=== PATIENT | male | born 1945 | race Two or more races ===

== ENCOUNTER 2018-01-04 07:11 | Inpatient (IN) | payer OTHER ==
[2018-01-04] MEDS ORDERED: SODIUM CHLORIDE 1,000 ML IV STA ×3 (07:22→10:23)
[2018-01-04] MEDS ORDERED: ACETAMINOPHEN 1000 MG/100 ML VIAL (NON FORMULARY) IVPB ONE (07:41)
--- NOTE | 2018-01-04 07:41 | PDOC ---
History of Present Illness - General Chief Complaint: Bleeding from Anus Stated Complaint: ABD PAIN,BLOOD IN THE STOOL Time Seen by Provider: 01/04/18 07:22 - History of Present Illness Initial Comments: 01/04/18 07:49 72yo M resident from [facility] with h/o severe dementia with psychosis (capable of being verbal, but rarely speaks; listens to commands), hypertension, hyperlipidemia, depression, constipation and anxiety who presents to the emergency department via EMS for abdominal pain and blood in stool at the detention. Pt's HPI is severely limited due to his dementia and history is taken from detention paperwork and EMS team. Pt's BP en route to ED was 60/40 's and repeat here was 85/55 per automated cuff. Past History - Past Medical History Allergies/Adverse Reactions: Allergies Allergy/AdvReac Type Severity Reaction Status Date / Time No Known Allergies Allergy Verified 04/13/15 10:11 Home Medications: Ambulatory Orders Amlodipine Besylate [Norvasc -] 10 mg PO DAILY 04/13/15 Citalopram Hydrobromide [Celexa -] 20 mg PO DAILY 04/13/15 Gabapentin 300 mg PO TID 04/13/15 Oxycodone HCl 5 mg PO PRN PRN 04/13/15 Polyethylene Glycol 3350 [Miralax 119 gm Btl -] 17 gm PO DAILY 04/13/15 Quetiapine Fumarate [Seroquel -] 100 mg PO HS 04/13/15 Simvastatin [Zocor -] 20 mg PO HS 04/13/15 Tamsulosin HCl [Flomax -] 0.4 mg PO DAILY 04/13/15 oxyCODONE HCL [Roxicodone -] 5 mg PO Q8H PRN #0 tablet 04/15/15 Anemia: No Asthma: No Cancer: No Cardiac Disorders: No COPD: No CHF: No Dementia: Yes (dementia w/psychosis) Diabetes: No GI Disorders: No HTN: Yes Hypercholesterolemia: Yes Psychiatric Problems: Yes (depression,anxiety) Seizures: No - Suicide/Smoking/Psychosocial Hx Smoking History: Unknown if ever smoked Have you smoked in the past 12 months: No Hx Alcohol Use: No Substance Use Type: None Hx Substance Use Treatment: No Review of Systems - Review of Systems Able to Perform ROS?: No (Severe dementia) *Physical Exam - Physical Exam Comments: 01/04/18 08:09 GEN: NAD, laying in bed, alert to verbal stimuli, oriented to self HEENT: Conjunctival pallor, EOMI, DENI, Dry mucosa with thickened mucous, posterior oropharynx without erythema NECK: No JVD, Soft, no lymphadenopathy LUNG: CTA b/l no wheezes, rales, rhonchi CARDIAC: Tachycardic with regular rhythm, no murmurs appreciated, S1 and S2 normal Abdomen: Soft, nondistended, normoactive BS, diffuse tenderness, no guarding, unable to assess rebound RECTAL: Dark melanotic soft stool noted, no masses appreciated, slightly enlarged prostate noted, no hemorrhoids appreciated EXT: Warm, 2+ DP pulses, cap refill <2sec Heart Score/ECG Review #1 01/04/18 08:03 Sinus tachycardia at 109bpm with normal axis, normal R-wave progression, no ST abnormalities. Qtc 471 ED Treatment Course - LABORATORY CBC & Chemistry Diagram: 01/04/18 09:25 01/04/18 08:30 Medical Decision Making - Medical Decision Making 01/04/18 08:05 72yo M resident from [facility] with h/o severe dementia with psychosis (capable of being verbal, but rarely speaks; listens to commands), hypertension, hyperlipidemia, depression, constipation and anxiety Highly suspicious for GI bleed; r/o diverticular bleed vs. small bowel bleed vs. upper bleed Also suspicious for septic process --CBC --CMP --LA --UA --Blood cx, urine cx --VBG --1LNS bolus for his hypotension (will likely need another after, but would like to reassess his lung evaluation) --Ofirmev for fever --Protonix 40mg IVP once for GI protection --Type and screen, PT/INR, aPTT --EKG --CXR --Vanc 1500 once/Zosyn 4.5 once 01/04/18 08:11 Spoke with daughter who is HCP --DNR/DNI still in effect --Tranfusions are okay --Reversible causes okay to treat 01/04/18 08:59 Repeat BP after 1LNS 85/61 (MAP 71) with lung exam still clear --1LNS bolus 01/04/18 09:13 CMP revealing hypernatremia at 154, Chloride 120, BUN 78, Cr 1.5 --Most likely all secondary to dehydration and prerenal azotemia --Will continue NS for pressure support for now --FWD currently 4.1L at this Na level CBC hemolyzed; re-draw 01/04/18 09:22 LA 5.1 reported by lab; continue hydration. continue sepsis work-up 01/04/18 10:27 CBC 5.8 Hgb --Transfuse 2U PRBC now --Call for Dr. Sellers placed for admitting --Call to be placed to ICU for possible admit 01/04/18 12:40 Admitted to hospital for GI bleed; icu *DC/Admit/Observation/Transfer Diagnosis at time of Disposition: GI bleed Qualifiers: GI bleed type/associated pathology: unspecified gastrointestinal hemorrhage type Qualified Code(s): K92.2 - Gastrointestinal hemorrhage, unspecified - Discharge Dispostion Condition at time of disposition: Stable Admit: Yes - Referrals Referrals: Abhinav Giraldo [Non Staff, Medical] - - Patient Instructions - Post Discharge Activity
--- NOTE | 2018-01-04 07:51 | PDOC ---
Attending Attestation - Resident Resident Name: Arya Pressley - ED Attending Attestation I have performed the following: I have examined & evaluated the patient, The case was reviewed & discussed with the resident, I agree w/resident's findings & plan, Exceptions are as noted - HPI HPI: 72 yo M history HTN, dementia sent by [facility] for GI bleed. He has dementia, unable to offer history. Daughter is his proxy, she is present at bedside. He has a DNR/DNI, but she specifies that any reversible medical condition can be treated (transfusion, abx, IV fluids, etc). - Physicial Exam PE: GENERAL: Awake, alert, in no acute distress HEAD: No signs of trauma EYES: PERRLA, EOMI, sclera anicteric, conjunctiva clear ENT: Auricles normal inspection, hearing grossly normal, nares patent, oropharynx clear without exudates. Dry mucosa NECK: Normal ROM, supple, no lymphadenopathy, JVD, or masses LUNGS: Breath sounds equal, clear to auscultation bilaterally. No wheezes, and no crackles HEART: Tachycardic, normal S1 and S2, no murmurs, rubs or gallops ABDOMEN: Soft, diffusely tender, normoactive bowel sounds. +Guarding, no rebound. No masses. +Melena in diaper. EXTREMITIES: Normal range of motion, no edema. No clubbing or cyanosis. No cords, erythema, or tenderness NEUROLOGICAL: Moving all extremities. Speech is garbled. Limited by dementia. SKIN: Warm, Dry, normal turgor, no rashes or lesions noted. - Medical Decision Making Pt with melena, but also with signs of sepsis. Sepsis protocol initiated. Will tread with protonix, IV fluids, and early abx. Heart Score/ECG Review - ECG Impressions Comment:: EKG rad 07:40- Sinus tach 109 bpm, no acute ST/T changes
[2018-01-04] MEDS ORDERED: ACETAMINOPHEN INJECTION 100 ML IVPB ONE (07:53)
[2018-01-04] MEDS ORDERED: PANTOPRAZOLE SODIUM 40 MG VIAL IVPUSH ONE (07:58)
[2018-01-04] MEDS ORDERED: PANTOPRAZOLE SODIUM 40 MG/100 ML BAG IVPB ONE (08:14)
[2018-01-04] MEDS ORDERED: PIPERACILLIN/TAZOB 4.5 GM 4.5 GM/100 ML BAG IVPB ONE ×2 (08:17→08:34)
[2018-01-04] MEDS ORDERED: VANCOMYCIN 1,500 MG in DEXTROSE 5%-WATER - 500 ML IVPB ONE (08:17)
[2018-01-04] MEDS ORDERED: PANTOPRAZOLE SODIUM 40 MG VIAL ONE ×2 (08:18→14:36)
[2018-01-04] MEDS ORDERED: VANCOMYCIN 1 GRAM (PRE-DOCKED) 1,000 MG/250 ML BAG IVPB ONE (08:34)
[2018-01-04 08:36] LABS: VENOUS PC02 44.3 mmHg (38-52); VENOUS PH 7.32 (7.32-7.42); VENOUS PO2 49.8 mmHg (28-48)
[2018-01-04 09:02] LABS: ALBUMIN 2.5 g/dl (3.4-5.0); ALK PHOS 51 U/L (45-117); ANION GAP 10 (8-16); BILIRUBIN,TOTAL 0.2 mg/dL (0.2-1.0); BLOOD UREA NITROGEN 78 mg/dL (7-18); CHLORIDE 120 mmol/L (98-107); CO2 24 mmol/L (21-32); CREATININE 1.5 mg/dL (0.7-1.3); GLUCOSE,RANDOM 157 mg/dL (74-106); POTASSIUM 4.5 mmol/L (3.5-5.1); SGOT/AST 12 U/L (15-37); SGPT/ALT 13 U/L (12-78); SODIUM 154 mmol/L (136-145)
[2018-01-04 09:18] LABS: URINE APPEARANCE SLCLOUDY; URINE BILIRUBIN NEGATIVE (<2.0 mg/dL); URINE COLOR YELLOW; URINE GLUCOSE (UA) NEGATIVE (NEGATIVE); URINE KETONE NEGATIVE (NEGATIVE); URINE LEUK ESTERASE TRACE (NEGATIVE); URINE NITRITE NEGATIVE (NEGATIVE); URINE PROTEIN NEGATIVE (NEGATIVE); URINE UROBILINOGEN NEGATIVE mg/dL (0.2-1.0)
[2018-01-04 09:24] LABS: EPI CELLS RARE /HPF (FEW); URINE HYALINE CAST 7 /lpf; URINE MUCUS FEW
[2018-01-04 09:46] LABS: BASO % 0.5 % (0-2.0); HEMATOCRIT 17.6 % (35.4-49); LYMPH % 5.6 % (8-40); MCH 30.8 pg (25.7-33.7); MCHC 32.7 g/dl (32.0-35.9); MEAN CELL VOLUME 94.2 fl (80-96); MEAN PLT VOLUME 9.1 fl (7.5-11.1); MONO % 1.9 % (3.8-10.2); PLATELET COUNT 118 K/MM3 (134-434); RBC 1.87 M/mm3 (4.00-5.60); RDW 14.4 % (11.9-15.9); WHITE BLOOD COUNT 11.5 K/mm3 (4.0-10.0)
[2018-01-04 10:10] LABS: HEMOGLOBIN 5.8 GM/dL (11.7-16.9)
[2018-01-04 10:54] LABS: INR 1.47 (0.82-1.09); PROTHROMBIN TIME (PATIENT) 16.6 SEC (9.98-11.88)
[2018-01-04 10:57] LABS: ACTIVATED PTT 23.1 SECONDS (26.9-34.4)
--- NOTE | 2018-01-04 14:03 | CONSULT ---
Consultation: Service: [facility] CC: Dark red stool per rectum PCP: Dr. Powers GI: Dr. Andersen HPI: 72 yo M NH resident from [facility] w/ h/o advanced dementia, HTN, HLD, BPH, L sided weakness and wheelchair bound s/p multiple CVA, intracranial aneurysm bleed x 2 BIBEMS for dark red stool per rectum. Per and daughter at bedside, the NH called them at 6am in the morning and informed them patient was having possible bleeding while having bowel movement with abd pain. While at long term, per nurse patient did not have fever, chills, n/v, chest pain, cough, shortness of breath. PMH: As above PSH: None Social History: Non-contributory Family History: Non-contributory Allergy: None Home Meds: Amlodipine Besylate [Norvasc -] 5 mg PO DAILY 01/04/18 Doxazosin Mesylate [Cardura -] 1 mg PO HS 01/04/18 Gabapentin [Neurontin] 100 mg PO HS 01/04/18 Polyethylene Glycol 3350 [Gavilax] 17 gm PO DAILY 01/04/18 Quetiapine Fumarate [Seroquel] 100 mg PO HS 01/04/18 ROS: Unable to obtain due to advanced dementia Physical Examination Last Vital Signs Temp Pulse Resp BP Pulse Ox 99.5 F 90 18 113/61 98 01/04/18 13:40 01/04/18 13:40 01/04/18 13:40 01/04/18 13:40 01/04/18 13:40 GENERAL: AAO x 2, confused and demented at baseline, in no acute distress HEAD: No signs of trauma EYES: PERRLA, EOMI, sclera anicteric, conjunctiva pale ENT:nares patent, oropharynx clear pale without exudates. Dry mucosa NECK: Normal ROM, supple, no lymphadenopathy, JVD, or masses Lymph Nodes: No cervical or inguinal LAD. Cardiovascular: Tachycardic, Regular rhythm, S1 and S2 normal, no m/g/r. Lungs: CTAB Abdomen: Normoactive bowel sounds. diffuse tenderness upon deep palpation, no guarding/rebound Extremeties: cold extremities, diminished peripheral pulses : rectal exam deferred due to agitation CBCD WBC 11.5 K/mm3 (4.0-10.0) H D 01/04/18 09:25 RBC 1.87 M/mm3 (4.00-5.60) L D 01/04/18 09:25 Hgb 5.8 GM/dL (11.7-16.9) L* D 01/04/18 09:25 Hct 17.6 % (35.4-49) L D 01/04/18 09:25 MCV 94.2 fl (80-96) 01/04/18 09:25 MCHC 32.7 g/dl (32.0-35.9) 01/04/18 09:25 RDW 14.4 % (11.9-15.9) 01/04/18 09:25 Plt Count 118 K/MM3 (134-434) L D 01/04/18 09:25 MPV 9.1 fl (7.5-11.1) 01/04/18 09:25 CMP Sodium 154 mmol/L (136-145) H 01/04/18 08:30 Potassium 4.5 mmol/L (3.5-5.1) 01/04/18 08:30 Chloride 120 mmol/L (98-107) H D 01/04/18 08:30 Carbon Dioxide 24 mmol/L (21-32) 01/04/18 08:30 Anion Gap 10 (8-16) 01/04/18 08:30 BUN 78 mg/dL (7-18) H D 01/04/18 08:30 Creatinine 1.5 mg/dL (0.7-1.3) H D 01/04/18 08:30 Creat Clearance w eGFR 46.13 (>60) 01/04/18 08:30 Calcium 8.0 mg/dL (8.5-10.1) L 01/04/18 08:30 Total Bilirubin 0.2 mg/dL (0.2-1.0) D 01/04/18 08:30 AST 12 U/L (15-37) L D 01/04/18 08:30 ALT 13 U/L (12-78) 01/04/18 08:30 Alkaline Phosphatase 51 U/L (45-117) D 01/04/18 08:30 Total Protein 5.0 g/dl (6.4-8.2) L D 01/04/18 08:30 Albumin 2.5 g/dl (3.4-5.0) L D 01/04/18 08:30 Imaging: EKG on 01/04: Sinus tach 109 bpm, no acute ST/T changes CXR on 01/04: no acute pathology A/P: 72 yo M admitted to ICU for GI bleed with hypotension. # Melena # L sided weakness, s/p multiple CVA and intracranial aneurysm bleed # CKD Stage 3A, unknown baseline # Lactic acidosis # Hypernatremia # HLD # HTN - Likely UGIB, received 2L NS + 1 out of 2 units PRBC in ED, maintain IV access , protonix gtt, to receive 1 more unit of PRBC, NPO for endoscopy/colonoscopy tomorrow. - Hold all anti-coagulation including prophylaxis, PT after medically stable. - Likely with pre-renal component, will cont. hydration - Likely combination of renal disease and volume depletion, trend lactate - Due to NPO, Will give 1/2 NS - Hold BP medications DNR/DNI, daughter is the proxy [facility] PGY2 Pager: [phone] Visit type - Emergency Visit Emergency Visit: Yes ED Registration Date: 01/04/18 Care time: The patient presented to the Emergency Department on the above date and was hospitalized for further evaluation of their emergent condition. - New Patient This patient is new to me today: Yes Date on this admission: 01/04/18 - Critical Care Critical Care patient: Yes Total Critical Care Time (in minutes): 30 Critical Care Statement: The care of this patient involved high complexity decision making to prevent further life threatening deterioration of the patient 's condition and/or to evaluate & treat vital organ system(s) failure or risk of failure.
[2018-01-04] MEDS ORDERED: PHYTONADIONE 10 MG/1 ML AMP SQ ONE (14:16)
--- NOTE | 2018-01-04 14:16 | CON.GI ---
Consult Consult Specialty:: gi Reason for Consultation:: symptomatic anemia, GI bleed - History of Present Illness History of Present Illness: a 72-year-old gentleman, residential resident, with advanced dementia, awake however not communicative with his daughter and at the bedside in EGD Report large bloody bowel movement this morning and hypotension prior to transfer to [facility]. Per family, no history of gastrointestinal bleed. No history of peptic ulcer disease, colitis, or significant GI pathology. not on any anticoagulation, antiplatelet, or NSAIDs. no reports of nausea, vomiting, hematemesis, fever, chills, jaundice, distended abdomen, or abdominal pain. Hemoglobin on admission 5.8 g/dL. Blood pressure prior to 1 unit of PRBC and IV fluids 80/50 With heart rate in the 90s. After one unit and IV fluids, systolic 100s. INR 1.47, mildly elevated PT and PTT. BUN 70, creatinine 1.4. - History Source History Provided By: Family Member, Medical Record - Past Medical History [employer]: Yes: Dementia Cardio/Vascular: Yes: HTN, Hyperlipdemia - Alcohol/Substance Use Hx Alcohol Use: No - Smoking History Smoking history: Unknown if ever smoked Have you smoked in the past 12 months: No - Social History Usual Living Arrangement: Care Home Home Medications - Allergies Allergies/Adverse Reactions: Allergies Allergy/AdvReac Type Severity Reaction Status Date / Time No Known Allergies Allergy Verified 04/13/15 10:11 - Home Medications Home Medications: Ambulatory Orders Amlodipine Besylate [Norvasc -] 5 mg PO DAILY 01/04/18 Doxazosin Mesylate [Cardura -] 1 mg PO HS 01/04/18 Gabapentin [Neurontin] 100 mg PO HS 01/04/18 Polyethylene Glycol 3350 [Gavilax] 17 gm PO DAILY 01/04/18 Quetiapine Fumarate [Seroquel] 100 mg PO HS 01/04/18 Family Disease History - Family Disease History Family History: Unremarkable (Noncontributory) Review of Systems Findings/Remarks: limited due to and dementia. Otherwise as per transfer records Physical Exam-GI Vital Signs: Vital Signs Temperature 99.5 F 01/04/18 13:40 Pulse Rate 90 01/04/18 13:40 Respiratory Rate 18 01/04/18 13:40 Blood Pressure 113/61 01/04/18 13:40 O2 Sat by Pulse Oximetry (%) 98 04/13/18 13:40 Constitutional: Yes: No Distress, Calm, Pallor Eyes: Yes: Conjunctiva Clear HENT: Yes: Atraumatic Neck: Yes: Supple Cardiovascular: No: Bradycardia, Tachycardia Respiratory: Yes: Regular. No: SOB, Tachypnea Gastrointestinal Inspection: No: Ascites, Distention ...Palpate: Yes: Soft. No: Firm/Rigid, Guarding, Mass, Pulsatile Mass, Tenderness, Epigastium ...Percussion: No: Fluid Wave ...Rectal Exam: Yes: Guaiac Positive Neurological: Yes: Other ( awake, but noncommunicative) Labs: CBC, BMP 01/04/18 09:25 01/04/18 08:30 INR, PTT INR 1.47 (0.82-1.09) H 01/04/18 10:20 Laboratory Tests 01/04/18 01/04/18 01/04/18 07:54 08:30 08:30 WBC Corrected WBC (auto) RBC Hgb Hct MCV MCH MCHC RDW Plt Count MPV Neutrophils % Lymphocytes % Monocytes % Eosinophils % Basophils % Nucleated RBC % Platelet Estimate Platelet Comment PT with INR INR PTT (Actin FS) VBG pH POC VBG pCO2 POC VBG pO2 Mixed VBG HCO3 Sodium 154 H Potassium 4.5 Chloride 120 H D Carbon Dioxide 24 Anion Gap 10 BUN 78 H D Creatinine 1.5 H D Creat Clearance w eGFR 46.13 Random Glucose 157 H D Lactic Acid 5.1 H* Calcium 8.0 L Total Bilirubin 0.2 D AST 12 L D ALT 13 Alkaline Phosphatase 51 D Total Protein 5.0 L D Albumin 2.5 L D Urine Color Urine Appearance Urine pH Ur Specific [place] Urine Protein Urine Glucose (UA) Urine Ketones Urine Blood Urine Nitrite Urine Bilirubin Urine Urobilinogen Ur Leukocyte Esterase Urine WBC (Auto) Urine RBC (Auto) Ur Epithelial Cells Hyaline Casts Urine Mucus Stool Occult Blood Positive Blood Type Antibody Screen Crossmatch 01/04/18 01/04/18 01/04/18 08:30 08:30 08:30 WBC Cancelled Corrected WBC (auto) Cancelled RBC Cancelled Hgb Cancelled Hct Cancelled MCV Cancelled MCH Cancelled MCHC Cancelled RDW Cancelled Plt Count Cancelled MPV Cancelled Neutrophils % Cancelled Lymphocytes % Cancelled Monocytes % Cancelled Eosinophils % Cancelled Basophils % Cancelled Nucleated RBC % Cancelled Platelet Estimate Cancelled Platelet Comment Cancelled PT with INR Cancelled INR Cancelled PTT (Actin FS) Cancelled VBG pH POC VBG pCO2 POC VBG pO2 Mixed VBG HCO3 Sodium Potassium Chloride Carbon Dioxide Anion Gap BUN Creatinine Creat Clearance w eGFR Random Glucose Lactic Acid Calcium Total Bilirubin AST ALT Alkaline Phosphatase Total Protein Albumin Urine Color Urine Appearance Urine pH Ur Specific [place] Urine Protein Urine Glucose (UA) Urine Ketones Urine Blood Urine Nitrite Urine Bilirubin Urine Urobilinogen Ur Leukocyte Esterase Urine WBC (Auto) Urine RBC (Auto) Ur Epithelial Cells Hyaline Casts Urine Mucus Stool Occult Blood Blood Type A POSITIVE Antibody Screen Negative Crossmatch See Detail 01/04/18 01/04/18 01/04/18 08:30 09:00 09:25 WBC 11.5 H D Corrected WBC (auto) RBC 1.87 L D Hgb 5.8 L* D Hct 17.6 L D MCV 94.2 MCH 30.8 MCHC 32.7 RDW 14.4 Plt Count 118 L D MPV 9.1 Neutrophils % 92.0 H D Lymphocytes % 5.6 L D Monocytes % 1.9 L Eosinophils % 0.0 D Basophils % 0.5 Nucleated RBC % Platelet Estimate Platelet Comment PT with INR INR PTT (Actin FS) VBG pH 7.32 POC VBG pCO2 44.3 POC VBG pO2 49.8 H Mixed VBG HCO3 22.2 Sodium Potassium Chloride Carbon Dioxide Anion Gap BUN Creatinine Creat Clearance w eGFR Random Glucose Lactic Acid Calcium Total Bilirubin AST ALT Alkaline Phosphatase Total Protein Albumin Urine Color Yellow Urine Appearance Slcloudy Urine pH 5.0 Ur Specific [place] 1.027 Urine Protein Negative Urine Glucose (UA) Negative Urine Ketones Negative Urine Blood Negative Urine Nitrite Negative Urine Bilirubin Negative Urine Urobilinogen Negative Ur Leukocyte Esterase Trace Urine WBC (Auto) 3 Urine RBC (Auto) 3 Ur Epithelial Cells Rare Hyaline Casts 7 Urine Mucus Few Stool Occult Blood Blood Type Antibody Screen Crossmatch 01/04/18 01/04/18 01/04/18 10:20 10:43 11:30 WBC Corrected WBC (auto) RBC Hgb Hct MCV MCH MCHC RDW Plt Count MPV Neutrophils % Lymphocytes % Monocytes % Eosinophils % Basophils % Nucleated RBC % Platelet Estimate Platelet Comment PT with INR 16.60 H INR 1.47 H PTT (Actin FS) 23.1 L VBG pH POC VBG pCO2 POC VBG pO2 Mixed VBG HCO3 Sodium Potassium Chloride Carbon Dioxide Anion Gap BUN Creatinine Creat Clearance w eGFR Random Glucose Lactic Acid 3.6 H* Calcium Total Bilirubin AST ALT Alkaline Phosphatase Total Protein Albumin Urine Color Urine Appearance Urine pH Ur Specific [place] Urine Protein Urine Glucose (UA) Urine Ketones Urine Blood Urine Nitrite Urine Bilirubin Urine Urobilinogen Ur Leukocyte Esterase Urine WBC (Auto) Urine RBC (Auto) Ur Epithelial Cells Hyaline Casts Urine Mucus Stool Occult Blood Blood Type A POSITIVE Antibody Screen Crossmatch Imaging - Results X-ray: Report Reviewed Assessment/Plan a 72-year-old male with what appears to be acute blood loss anemia due to GI bleed. Hemodynamic instability on arrival however now appears to be more stable. Received 1 unit of PRBC and IV fluids. Not tachycardic with a systolic blood pressure in the 100s. The patient appears calm and not in distress. His daughter and at bedside. Transfuse 1 more unit of PRBC. Vitamin K 2 mg sq Continue IV fluids PPI bolus followed by IV tree. Carafate as per endoscopic findings. Plan upper endoscopy as discussed with the family ICU ICU
--- NOTE | 2018-01-04 14:29 | HP ---
Admitting History and Physical - Primary Care Physician PCP: Duong Sellers - Admission Chief Complaint: GI BLEED ACUTE ANEMIA History of Present Illness: 72yo M resident from [facility] with h/o severe dementia with psychosis (capable of being verbal, but rarely speaks; listens to commands), hypertension, hyperlipidemia, depression, constipation and anxiety who presents to the emergency department via EMS for abdominal pain and blood in stool at the halfway. Pt's HPI is severely limited due to his dementia and history is taken from halfway paperwork and EMS team. Pt's BP en route to ED was 60/40 's and repeat here was 85/55 per automated cuff. History Source: Medical Record Limitations to Obtaining History: Dementia - Past Medical History [employer]: Yes: Dementia Cardiovascular: Yes: HTN, Hyperlipdemia - Smoking History Smoking history: Unknown if ever smoked Have you smoked in the past 12 months: No - Alcohol/Substance Use Hx Alcohol Use: No Home Medications - Allergies Allergies/Adverse Reactions: Allergies Allergy/AdvReac Type Severity Reaction Status Date / Time No Known Allergies Allergy Verified 04/13/15 10:11 - Home Medications Home Medications: Ambulatory Orders Amlodipine Besylate [Norvasc -] 5 mg PO DAILY 01/04/18 Doxazosin Mesylate [Cardura -] 1 mg PO HS 01/04/18 Gabapentin [Neurontin] 100 mg PO HS 01/04/18 Polyethylene Glycol 3350 [Gavilax] 17 gm PO DAILY 01/04/18 Quetiapine Fumarate [Seroquel] 100 mg PO HS 01/04/18 Review of Systems - Review of Systems Constitutional: reports: Weakness Eyes: reports: No Symptoms HENT: reports: No Symptoms Neck: reports: No Symptoms Cardiovascular: reports: Other Respiratory: reports: SOB Gastrointestinal: reports: Rectal Bleeding Genitourinary: reports: Hematuria Musculoskeletal: reports: Muscle Weakness Integumentary: reports: No Symptoms Neurological: reports: Confusion, Pre-Existing Deficit Endocrine: reports: No Symptoms Hematology/Lymphatic: reports: No Symptoms Psychiatric: reports: Other Physical Examination Vital Signs: Vital Signs Temperature 99.5 F 01/04/18 13:40 Pulse Rate 90 01/04/18 13:40 Respiratory Rate 18 01/04/18 13:40 Blood Pressure 113/61 01/04/18 13:40 O2 Sat by Pulse Oximetry (%) 98 01/04/18 13:40 Constitutional: Yes: Moderate Distress Eyes: Yes: WNL HENT: Yes: WNL Neck: Yes: WNL Cardiovascular: Yes: Pulse Irregular, Murmur Respiratory: Yes: On Nasal O2, Poor Air Entry, SOB Gastrointestinal: Yes: Tenderness ...Rectal Exam: Yes: Other Renal/: Yes: Incontinence Musculoskeletal: Yes: Muscle Weakness Extremities: Yes: Other Edema: Yes Edema: LLE: Trace, RLE: Trace Peripheral Pulses WNL: Yes Integumentary: Yes: Other Wound/Incision: Yes: Dressing Dry and Intact Neurological: Yes: Aphasia, Pre-Existing Deficit, Unresponsive, Other ...Motor Strength: LUE, LLE, RUE, RLE Psychiatric: Yes: Other Labs: CBC, BMP 01/04/18 09:25 01/04/18 08:30 Problem List - Problems (1) Dementia Code(s): F03.90 - UNSPECIFIED DEMENTIA WITHOUT BEHAVIORAL DISTURBANCE (2) GI bleed Code(s): K92.2 - GASTROINTESTINAL HEMORRHAGE, UNSPECIFIED Qualifiers: GI bleed type/associated pathology: unspecified gastrointestinal hemorrhage type Qualified Code(s): K92.2 - Gastrointestinal hemorrhage, unspecified (3) Chest pain Code(s): R07.9 - CHEST PAIN, UNSPECIFIED (4) Hypoxia Code(s): R09.02 - HYPOXEMIA Assessment/Plan TRANSFUSE PRBC SEPSIS W/U GI WORKUP CONSULT DR BONILLA FOR GI W/UP DVT PROPHYLAXIS ICU ADMISSION ARF NEPHROLOGY CONSULT IVF BLOOD PRESSURE SUPPORT 02 SUPPORT
[2018-01-04] MEDS ORDERED: PANTOPRAZOLE SODIUM 80 MG in SODIUM CHLORIDE 100 ML IVPB SCH (14:30)
[2018-01-04] MEDS ORDERED: SODIUM CHLORIDE 0.45% 1,000 ML IV SCH (15:00)
--- NOTE | 2018-01-04 15:58 | CONSULT ---
Consult Consult Specialty:: Nephrology Reason for Consultation:: SONAM - History of Present Illness Chief Complaint: send on for GI bleed History of Present Illness: Pt is a 72 year old male with pmhx of dementia, psychosis, HTN, chol, depression and constipation who was sent in from the [facility] for lower GI bleed. He is unable to give history. Family are at bedside and care was discussed with them. He was found to be hypotensive with a bp of 60/40. Pt was found to be anemic and is going for endoscopy. I was called to evaluate him for SONAM as his creatinine is elevated. He does not have history of CKD. He denies shortness of breath. He is a poor historian. - History Source History Provided By: Family Member, Medical Record - Past Medical History [employer]: Yes: Dementia Cardio/Vascular: Yes: HTN, Hyperlipdemia - Alcohol/Substance Use Hx Alcohol Use: No - Smoking History Smoking history: Unknown if ever smoked Have you smoked in the past 12 months: No - Social History Usual Living Arrangement: Residential Home Medications - Allergies Allergies/Adverse Reactions: Allergies Allergy/AdvReac Type Severity Reaction Status Date / Time No Known Allergies Allergy Verified 04/13/15 10:11 - Home Medications Home Medications: Ambulatory Orders Amlodipine Besylate [Norvasc -] 5 mg PO DAILY 01/04/18 Doxazosin Mesylate [Cardura -] 1 mg PO HS 01/04/18 Gabapentin [Neurontin] 100 mg PO HS 01/04/18 Polyethylene Glycol 3350 [Gavilax] 17 gm PO DAILY 01/04/18 Quetiapine Fumarate [Seroquel] 100 mg PO HS 01/04/18 Family Disease History - Family Disease History Family History: Denies Review of Systems - Review of Systems Constitutional: reports: No Symptoms Eyes: reports: No Symptoms HENT: reports: No Symptoms Neck: reports: No Symptoms Cardiovascular: reports: No Symptoms Respiratory: reports: No Symptoms Gastrointestinal: reports: Rectal Bleeding Genitourinary: reports: No Symptoms Musculoskeletal: reports: No Symptoms Integumentary: reports: No Symptoms Physical Exam Vital Signs: Vital Signs Temperature 99.5 F 01/04/18 13:40 Pulse Rate 90 01/04/18 13:40 Respiratory Rate 18 01/04/18 13:40 Blood Pressure 113/61 01/04/18 13:40 O2 Sat by Pulse Oximetry (%) 98 01/04/18 13:40 Constitutional: Yes: Calm Eyes: Yes: Conjunctiva Clear HENT: Yes: Atraumatic Cardiovascular: Yes: S1, S2 Respiratory: Yes: On Nasal O2 Gastrointestinal: Yes: Soft Renal/: Yes: Incontinence Musculoskeletal: Yes: Muscle Weakness Edema: No Neurological: Yes: Confusion Labs: CBC, BMP 01/04/18 09:25 01/04/18 08:30 Laboratory Tests 04/13/15 04/14/15 04/15/15 10:16 06:00 07:00 WBC Hgb Sodium Potassium Chloride Carbon Dioxide Anion Gap BUN Creatinine 0.6 0.7 0.7 Lactic Acid Urine Protein Urine Blood Stool Occult Blood 01/04/18 01/04/18 01/04/18 07:54 08:30 08:30 WBC Hgb Sodium 154 H Potassium 4.5 Chloride 120 H D Carbon Dioxide 24 Anion Gap 10 BUN 78 H D Creatinine 1.5 H D Lactic Acid 5.1 H* Urine Protein Urine Blood Stool Occult Blood Positive 01/04/18 01/04/18 01/04/18 09:00 09:25 11:30 WBC 11.5 H D Hgb 5.8 L* D Sodium Potassium Chloride Carbon Dioxide Anion Gap BUN Creatinine Lactic Acid 3.6 H* Urine Protein Negative Urine Blood Negative Stool Occult Blood Imaging - Results Chest X-ray: Report Reviewed Problem List - Problems (1) Lactic acidosis Code(s): E87.2 - ACIDOSIS (2) SONAM (acute kidney injury) Code(s): N17.9 - ACUTE KIDNEY FAILURE, UNSPECIFIED (3) Dementia Code(s): F03.90 - UNSPECIFIED DEMENTIA WITHOUT BEHAVIORAL DISTURBANCE (4) GI bleed Code(s): K92.2 - GASTROINTESTINAL HEMORRHAGE, UNSPECIFIED Qualifiers: GI bleed type/associated pathology: unspecified gastrointestinal hemorrhage type Qualified Code(s): K92.2 - Gastrointestinal hemorrhage, unspecified Assessment/Plan Current Medications Generic Name Dose Route Start Last Admin Trade Name Freq PRN Reason Stop Dose Admin Chlorhexidine Gluconate 1 applic 01/04/18 22:00 Hibiclens For Decolonization - TP HS SHANNA Sodium Chloride 1,000 mls @ 42 mls/hr 01/04/18 15:00 1/2 Normal Saline IV ASDIR SHANNA Pantoprazole Sodium 160 mg/ 290 mls @ 14.5 mls/hr 01/04/18 15:30 Sodium Chloride IVPB Q20H SHANNA Mupirocin 1 applic 01/04/18 22:00 Bactroban Ointment (For Decolonization) - NS 01/09/18 21:59 BID SHANNA Impression 1. SONAM 2. lactic acidosis 3. GI bleed 4. hypotension 5. dementia 6. hypernatremia 7. anemia Plan - pt going for endoscopy - s/p prbc transfusion - check renal ultrasound - send ua, lytes and marriage performer - likely sonam from pre-renal disease - will monitor progression - agree with hypotonic fluids - monitor sodium level - trend lactic acid Dr Lawrence
--- NOTE | 2018-01-04 17:21 | PN ---
Teaching Attending Note Name of Resident: Kb Sage ATTENDING PHYSICIAN STATEMENT I saw and evaluated the patient. I reviewed the resident's note and discussed the case with the resident. I agree with the resident's findings and plan as documented. SUBJECTIVE: 72 M, SNF resident, PMHx of severe dementia with psychosis, hypertension, hyperlipidemia, depression, constipation, and anxiety. Admitted via the ER due to abdominal pain and blood in stool at the correction. According to EMS records he was hypotensive to 60/40's. In the ER he remained hypotensive and improved after IVF resuscitation. No apparent travel history or sick contacts. No reported hemoptysis or hematuria. Intake & Output 01/01/18 01/02/18 01/03/18 01/04/18 23:59 23:59 23:59 23:59 Weight 180 lb Last Vital Signs Temp Pulse Resp BP Pulse Ox 99.5 F 90 18 113/61 98 01/04/18 13:40 01/04/18 13:40 01/04/18 13:40 01/04/18 13:40 01/04/18 13:40 Active Medications Chlorhexidine Gluconate (Hibiclens For Decolonization -) 1 applic TP HS SHANNA Sodium Chloride (1/2 Normal Saline) 1,000 mls @ 42 mls/hr IV ASDIR SHANNA Pantoprazole Sodium 160 mg/ (Sodium Chloride) 290 mls @ 14.5 mls/hr IVPB Q20H SHANNA Mupirocin (Bactroban Ointment (For Decolonization) -) 1 applic NS BID SHANNA Stop: 01/09/18 21:59 Constitutional: Yes: Mild Distress Eyes: Yes: WNL HENT: Yes: WNL Neck: Yes: WNL Cardiovascular: Yes: Pulse Irregular, Murmur Respiratory: Yes: On Nasal O2, Poor Air Entry, SOB Gastrointestinal: Yes: Tenderness, (+) BS ...Rectal Exam: Yes: Other Renal/: Yes: Incontinence Musculoskeletal: Yes: Muscle Weakness Extremities: Yes: Other Edema: Yes Edema: LLE: Trace, RLE: Trace Peripheral Pulses WNL: Yes Integumentary: Yes: Other Wound/Incision: Yes: Dressing Dry and Intact Neurological: Yes: Aphasia, Pre-Existing Deficit, Unresponsive, Other ...Motor Strength: LUE, LLE, RUE, RLE Psychiatric: Yes: Other Labs: Laboratory Results - last 24 hr 01/04/18 01/04/18 01/04/18 07:54 08:30 08:30 WBC Corrected WBC (auto) RBC Hgb Hct MCV MCH MCHC RDW Plt Count MPV Neutrophils % Lymphocytes % Monocytes % Eosinophils % Basophils % Nucleated RBC % Platelet Estimate Platelet Comment PT with INR INR PTT (Actin FS) VBG pH POC VBG pCO2 POC VBG pO2 Mixed VBG HCO3 Sodium 154 H Potassium 4.5 Chloride 120 H D Carbon Dioxide 24 Anion Gap 10 BUN 78 H D Creatinine 1.5 H D Creat Clearance w eGFR 46.13 Random Glucose 157 H D Lactic Acid 5.1 H* Calcium 8.0 L Total Bilirubin 0.2 D AST 12 L D ALT 13 Alkaline Phosphatase 51 D Total Protein 5.0 L D Albumin 2.5 L D Urine Color Urine Appearance Urine pH Ur Specific [place] Urine Protein Urine Glucose (UA) Urine Ketones Urine Blood Urine Nitrite Urine Bilirubin Urine Urobilinogen Ur Leukocyte Esterase Urine WBC (Auto) Urine RBC (Auto) Ur Epithelial Cells Hyaline Casts Urine Mucus Stool Occult Blood Positive Blood Type Antibody Screen Crossmatch 01/04/18 01/04/18 01/04/18 08:30 08:30 08:30 WBC Cancelled Corrected WBC (auto) Cancelled RBC Cancelled Hgb Cancelled Hct Cancelled MCV Cancelled MCH Cancelled MCHC Cancelled RDW Cancelled Plt Count Cancelled MPV Cancelled Neutrophils % Cancelled Lymphocytes % Cancelled Monocytes % Cancelled Eosinophils % Cancelled Basophils % Cancelled Nucleated RBC % Cancelled Platelet Estimate Cancelled Platelet Comment Cancelled PT with INR Cancelled INR Cancelled PTT (Actin FS) Cancelled VBG pH POC VBG pCO2 POC VBG pO2 Mixed VBG HCO3 Sodium Potassium Chloride Carbon Dioxide Anion Gap BUN Creatinine Creat Clearance w eGFR Random Glucose Lactic Acid Calcium Total Bilirubin AST ALT Alkaline Phosphatase Total Protein Albumin Urine Color Urine Appearance Urine pH Ur Specific [place] Urine Protein Urine Glucose (UA) Urine Ketones Urine Blood Urine Nitrite Urine Bilirubin Urine Urobilinogen Ur Leukocyte Esterase Urine WBC (Auto) Urine RBC (Auto) Ur Epithelial Cells Hyaline Casts Urine Mucus Stool Occult Blood Blood Type A POSITIVE Antibody Screen Negative Crossmatch See Detail 01/04/18 01/04/18 01/04/18 08:30 09:00 09:25 WBC 11.5 H D Corrected WBC (auto) RBC 1.87 L D Hgb 5.8 L* D Hct 17.6 L D MCV 94.2 MCH 30.8 MCHC 32.7 RDW 14.4 Plt Count 118 L D MPV 9.1 Neutrophils % 92.0 H D Lymphocytes % 5.6 L D Monocytes % 1.9 L Eosinophils % 0.0 D Basophils % 0.5 Nucleated RBC % Platelet Estimate Platelet Comment PT with INR INR PTT (Actin FS) VBG pH 7.32 POC VBG pCO2 44.3 POC VBG pO2 49.8 H Mixed VBG HCO3 22.2 Sodium Potassium Chloride Carbon Dioxide Anion Gap BUN Creatinine Creat Clearance w eGFR Random Glucose Lactic Acid Calcium Total Bilirubin AST ALT Alkaline Phosphatase Total Protein Albumin Urine Color Yellow Urine Appearance Slcloudy Urine pH 5.0 Ur Specific [place] 1.027 Urine Protein Negative Urine Glucose (UA) Negative Urine Ketones Negative Urine Blood Negative Urine Nitrite Negative Urine Bilirubin Negative Urine Urobilinogen Negative Ur Leukocyte Esterase Trace Urine WBC (Auto) 3 Urine RBC (Auto) 3 Ur Epithelial Cells Rare Hyaline Casts 7 Urine Mucus Few Stool Occult Blood Blood Type Antibody Screen Crossmatch 01/04/18 01/04/18 01/04/18 10:20 10:43 11:30 WBC Corrected WBC (auto) RBC Hgb Hct MCV MCH MCHC RDW Plt Count MPV Neutrophils % Lymphocytes % Monocytes % Eosinophils % Basophils % Nucleated RBC % Platelet Estimate Platelet Comment PT with INR 16.60 H INR 1.47 H PTT (Actin FS) 23.1 L VBG pH POC VBG pCO2 POC VBG pO2 Mixed VBG HCO3 Sodium Potassium Chloride Carbon Dioxide Anion Gap BUN Creatinine Creat Clearance w eGFR Random Glucose Lactic Acid 3.6 H* Calcium Total Bilirubin AST ALT Alkaline Phosphatase Total Protein Albumin Urine Color Urine Appearance Urine pH Ur Specific [place] Urine Protein Urine Glucose (UA) Urine Ketones Urine Blood Urine Nitrite Urine Bilirubin Urine Urobilinogen Ur Leukocyte Esterase Urine WBC (Auto) Urine RBC (Auto) Ur Epithelial Cells Hyaline Casts Urine Mucus Stool Occult Blood Blood Type A POSITIVE Antibody Screen Crossmatch Problem List - Problems (1) Dementia Code(s): F03.90 - UNSPECIFIED DEMENTIA WITHOUT BEHAVIORAL DISTURBANCE (2) GI bleed Code(s): K92.2 - GASTROINTESTINAL HEMORRHAGE, UNSPECIFIED Qualifiers: GI bleed type/associated pathology: unspecified gastrointestinal hemorrhage type Qualified Code(s): K92.2 - Gastrointestinal hemorrhage, unspecified (3) Chest pain Code(s): R07.9 - CHEST PAIN, UNSPECIFIED (4) Hypoxia Code(s): R09.02 - HYPOXEMIA (5) Transaminitis: (?) due to shock liver Assessment/Plan Normal transfusion thresholds ABX per ID IVF GI evaluation Renal evaluation Strict I&O O2 as needed to maintain saturation Follow CBC ICU monitoring Dr Powell Critical care time spent in reviewing chart, evaluating patient and formulating plan - 36 minutes.
[2018-01-04] MEDS ORDERED: PHENYLEPHRINE HCL 10 MG/1 ML SINGLE DOSE VIAL ONE (17:46)
[2018-01-04] MEDS ORDERED: EPINEPHrine 1:10,000 (P-F SYR) 1 MG/10 ML DISP.SYRIN ONE ×2 (18:32→18:33)
--- NOTE | 2018-01-04 19:15 | PROC ---
Endoscopy Procedure Endoscopy procedure completed. Please see scanned procedure report. Large, flat, actively bleeding ulcer was found in the duodenal bulb. Incomplete hemostasis after 9 hemoclips and 17 cc of epi. Complete hemostasis was achieved however with a heater probe at 10 W for a total of 2 min of contact. The ulcer was observed for 5 min. No further bleeding was noted. Normal 2-nd portion, esophagus and the stomach. Small hiatal hernia was noted. 1 u PRBC tonight NPO overnight, clear liquid diet in am if no events. Continue PPI IV Start carafate liquid qid CBC in am Follow pathology IR angio with embolization if rebleeds
[2018-01-04] MEDS: PANTOPRAZOLE SODIUM 160 MG in SODIUM CHLORIDE 290 ML IVPB SCH (19:30)
[2018-01-04 20:43] VITALS: BMI 24.3
[2018-01-04 21:13] LABS: HEMATOCRIT 21.1 % (35.4-49); HEMOGLOBIN 7.1 GM/dL (11.7-16.9); MCH 30.2 pg (25.7-33.7); MCHC 33.5 g/dl (32.0-35.9); MEAN CELL VOLUME 90.3 fl (80-96); MEAN PLT VOLUME 9.6 fl (7.5-11.1); PLATELET COUNT 112 K/MM3 (134-434); RBC 2.34 M/mm3 (4.00-5.60); WHITE BLOOD COUNT 18.7 K/mm3 (4.0-10.0)
[2018-01-04] MEDS: CHLORHEXIDINE GLUCONATE 4% CLEANSER FOR DECOLONIZATION TP SCH (22:00)
[2018-01-05] MEDS ORDERED: PT OWN MED DRAWER 7, Y5N ONE ×2 (01:37→07:31)
[2018-01-05] MEDS ORDERED: ACETAMINOPHEN 1000 MG/100 ML VIAL (NON FORMULARY) IVPB PRN (01:37)
[2018-01-05 01:52] LABS: HEMATOCRIT 21.4 % (35.4-49); HEMOGLOBIN 7.2 GM/dL (11.7-16.9); MCH 30.3 pg (25.7-33.7); MCHC 33.7 g/dl (32.0-35.9); MEAN CELL VOLUME 89.9 fl (80-96); MEAN PLT VOLUME 9.4 fl (7.5-11.1); PLATELET COUNT 107 K/MM3 (134-434); RBC 2.38 M/mm3 (4.00-5.60); URINE APPEARANCE CLEAR; URINE BILIRUBIN NEGATIVE (<2.0 mg/dL); URINE COLOR YELLOW; URINE GLUCOSE (UA) NEGATIVE (NEGATIVE); URINE KETONE NEGATIVE (NEGATIVE); URINE LEUK ESTERASE NEGATIVE (NEGATIVE); URINE NITRITE NEGATIVE (NEGATIVE); URINE PROTEIN NEGATIVE (NEGATIVE); URINE UROBILINOGEN NEGATIVE mg/dL (0.2-1.0); WHITE BLOOD COUNT 18.5 K/mm3 (4.0-10.0)
[2018-01-05 02:01] LABS: URINE BACTERIA RARE /hpf (NONE SEEN); URINE HYALINE CAST 1 /lpf; URINE MUCUS RARE
[2018-01-05] MEDS: SODIUM CHLORIDE 1,000 ML IV SCH ×2 (03:00→09:43)
[2018-01-05 06:59] LABS: BASO % 0.1 % (0-2.0); EOS % 0.1 % (0-4.5); HEMATOCRIT 23.8 % (35.4-49); HEMOGLOBIN 8.3 GM/dL (11.7-16.9); LYMPH % 8.1 % (8-40); MCHC 34.7 g/dl (32.0-35.9); MEAN CELL VOLUME 89.2 fl (80-96); MEAN PLT VOLUME 9.4 fl (7.5-11.1); MONO % 5.8 % (3.8-10.2); NEUT % 85.9 % (42.8-82.8); PLATELET COUNT 109 K/MM3 (134-434); RBC 2.67 M/mm3 (4.00-5.60); RDW 14.9 % (11.9-15.9); WHITE BLOOD COUNT 18.6 K/mm3 (4.0-10.0)
[2018-01-05 07:08] LABS: INR 1.39 (0.82-1.09); PROTHROMBIN TIME (PATIENT) 15.7 SEC (9.98-11.88)
[2018-01-05 07:28] LABS: ANION GAP 6 (8-16); BLOOD UREA NITROGEN 46 mg/dL (7-18); CHLORIDE 126 mmol/L (98-107); CO2 25 mmol/L (21-32); GLUCOSE,RANDOM 111 mg/dL (74-106); MAGNESIUM 1.6 mg/dL (1.8-2.4); POTASSIUM 3.7 mmol/L (3.5-5.1); SGPT/ALT 12 U/L (12-78); SODIUM 157 mmol/L (136-145)
[2018-01-05] MEDS: SUCRALFATE 1 GM/10 ML UNIT DOSE CUPS PO SCH ×5 (07:33→21:22)
[2018-01-05 07:35] LABS: ALK PHOS 36 U/L (45-117); BILIRUBIN,TOTAL 3.1 mg/dL (0.2-1.0); CREATININE 0.8 mg/dL (0.7-1.3); SGOT/AST 15 U/L (15-37); TOT PROT 3.9 g/dl (6.4-8.2)
[2018-01-05 07:51] LABS: CALCIUM 6.5 mg/dL (8.5-10.1)
--- NOTE | 2018-01-05 08:25 | PN ---
Progress Note (short form) - Note Progress Note: ID consult dictated imp/reccd 72 year old man admitted from [place] with hypotension and blood per rectum he was admitted to the ICU he is s/p 4 units PRBC he is s/p EGD last night- large DU actively bleeding- cautery, clips used fever of 101 on admission afebrile since he has a persistent leukocytosis of 18k he received vancomycin and zosyn in ed GI bleed fever/leukocytosis/pyuria will treat with rocephin until cultures are back for possible UTI leukocytosis may be partially due to stress of GI bleed Problem List - Problems (1) GI bleed Code(s): K92.2 - GASTROINTESTINAL HEMORRHAGE, UNSPECIFIED Qualifiers: GI bleed type/associated pathology: unspecified gastrointestinal hemorrhage type Qualified Code(s): K92.2 - Gastrointestinal hemorrhage, unspecified (2) Fever Code(s): R50.9 - FEVER, UNSPECIFIED (3) Leukocytosis Code(s): D72.829 - ELEVATED WHITE BLOOD CELL COUNT, UNSPECIFIED
--- NOTE | 2018-01-05 08:26 | PN ---
Progress Note (short form) - Note Progress Note: Anesthesia Post op Pt seen and examined S:Alert and awake O: Vital Signs Temperature 98.8 F 01/05/18 06:00 Pulse Rate 78 01/05/18 06:00 Respiratory Rate 18 01/05/18 06:00 Blood Pressure 101/51 01/05/18 06:00 O2 Sat by Pulse Oximetry (%) 98 01/04/18 21:03 CBC, BMP 01/05/18 05:30 01/05/18 05:30 A/P: Current Active Problems SONAM (acute kidney injury) (Acute) Dementia (Acute) GI bleed (Acute) Lactic acidosis (Acute) s/p EGD Doing well post op Continue current care Arya Weeks MD
[2018-01-05] MEDS: MUPIROCIN 2% TOPICAL OINTMENT FOR DECOLONIZATION NS SCH ×3 (09:05→21:22)
[2018-01-05] MEDS ORDERED: cefTRIAXone SODIUM 1 GM VIAL ONE (09:09)
[2018-01-05] MEDS ORDERED: DEXTROSE 5%-WATER - 50 ML IVPB ONE (09:09)
--- NOTE | 2018-01-05 09:14 | CONS ---
DATE OF CONSULTATION: DATE OF DICTATION: 01/05/2018 REQUESTING PHYSICIAN: Duong Sellers MD HISTORY OF PRESENT ILLNESS: This is a 72-year-old man who presented to the ER with hypotension and GI bleeding. He was also noted to have a fever of 101 in the ER and he had a workup in the ER that included cultures because of the fever. He was found to have a white count originally of 11,000 that later gill to 18,000 and an elevated lactic acid. He was given the fever. He was given a dose of vancomycin and Zosyn in the emergency room, and I am asked to see him. Overnight, he has received 4 units of packed cells, he has been evaluated by GI, he underwent upper endoscopy and was found to have an actively bleeding duodenal ulcer, which has been treated with epinephrine and hemoclips as well as heater probe. This morning, he continues to have melena. PAST MEDICAL HISTORY: Notable for dementia with unspecified psychosis, hypertension, hyperlipidemia, depression, constipation, and anxiety. He has a past medical history as well of BPH. SURGICAL HISTORY: Unknown. Unfortunately, he has a history of dementia and is unable to accurately give history. ALLERGIES: He has no known drug allergies. MEDICATIONS: His medication list includes Seroquel, gabapentin, doxazosin, polyethylene glycol, and Norvasc. ADVANCE DIRECTIVES: He has DNR status at the [facility] as well as DNR status. SOCIAL HISTORY: He resides at the [facility]. No history of cigarette or substance uses available. REVIEW OF SYSTEMS: Notable for GI bleeding. PHYSICAL EXAMINATION General: Currently, he is awake and alert. He is resting comfortably in no distress. He has a Camacho in place. He is a well-appearing elderly man. He is quite alert and conversant. He has no complaints of any pain at this time. Vital signs: His temperature is 98.8. He has had no further fever since the fever on admission 101.1. His pulse is 78, blood pressure is 101/51, respiratory rate 18. HEENT: He is normocephalic. His eyes are anicteric. Neck: Supple. Lungs: Clear to auscultation. Heart: Regular rate and rhythm. Abdomen: Soft. He has no mid epigastric pain. He has no suprapubic pain. Camacho is in place. Extremities: Without edema. LABORATORIES: Notable for a white count of 18.6, hemoglobin 8.3, platelets 109. INR is 1.3. BUN is 46 and creatinine 0.8. His lactic acid was 5.1 on admission, last is 3.2. Urinalysis is notable for 2 white cells, 27 red cells. SUMMARY: This is a 72-year-old man admitted from the [facility] with hypotension and blood per rectum. He has had an active duodenal ulcer bleed status post esophagogastroduodenoscopy and transfusion. Leukocytosis could certainly be secondary to the stress of the GI bleed, but he did have fever of 101 overnight. He has no pyuria. He had 2 white cells; this is an error in my written note, which I will edit. Would treat him with ceftriaxone for 48 hours pending cultures with plans to discontinue antibiotics if the cultures are negative. I do not think he has urinary tract infection as the urinalysis has cleared. RILEY FERRERA M.D. [id number] MTDD
--- NOTE | 2018-01-05 09:32 | PN ---
Progress Note (short form) - Note Progress Note: Patient seen and examiend in the ICU. S/P hemostasis of a large, flat, actively bleeding ulcer in the duodenal bulb. Awake and alert. Denies CP or SOB. Denies GI symptoms. Intake & Output 01/02/18 01/03/18 01/04/18 01/05/18 23:59 23:59 23:59 23:59 Intake Total 950 1172 Output Total 50 200 Balance 900 972 Weight 165 lb 2.02 oz 165 lb 2.02 oz Last Vital Signs Temp Pulse Resp BP Pulse Ox 98.8 F 80 15 124/63 98 01/05/18 06:00 01/05/18 08:00 01/05/18 08:00 01/05/18 08:00 01/04/18 21:03 Active Medications Acetaminophen (Ofirmev Injection -) 1,000 mg IVPB Q6H PRN PRN Reason: FEVER Last Admin: 01/05/18 04:11 Dose: 1,000 mg Chlorhexidine Gluconate (Hibiclens For Decolonization -) 1 applic TP HS [facility] Last Admin: 01/04/18 22:00 Dose: 1 applic Pantoprazole Sodium 160 mg/ (Sodium Chloride) 290 mls @ 14.5 mls/hr IVPB Q20H [facility] Last Admin: 01/04/18 19:30 Dose: 14.5 mls/hr Sodium Chloride (Normal Saline -) 1,000 mls @ 125 mls/hr IV ASDIR [facility] Last Admin: 01/05/18 03:00 Dose: 125 mls/hr Ceftriaxone Sodium 1 gm/ (Dextrose) 50 mls @ 100 mls/hr IVPB DAILY [facility] Last Admin: 01/05/18 09:19 Dose: 100 mls/hr Mupirocin (Bactroban Ointment (For Decolonization) -) 1 applic NS BID [facility] Stop: 01/09/18 21:59 Last Admin: 01/05/18 09:05 Dose: 1 applic Sucralfate (Carafate Oral Suspension -) 1 gm PO ACHS [facility] Last Admin: 01/05/18 07:33 Dose: 1 gm Constitutional: Yes: NAD Eyes: Yes: WNL HENT: Yes: WNL Neck: Yes: WNL Cardiovascular: Yes: Pulse Irregular, Murmur Respiratory: Yes: On Nasal O2, diminished at the bases Gastrointestinal: Yes: Tenderness, (+) BS ...Rectal Exam: Yes: Other Renal/: Yes: Incontinence Musculoskeletal: Yes: Muscle Weakness Extremities: Yes: Other Edema: Yes Edema: LLE: Trace, RLE: Trace Peripheral Pulses WNL: Yes Integumentary: Yes: Other Wound/Incision: Yes: Dressing Dry and Intact Neurological: Yes: Aphasia, Pre-Existing Deficit, Unresponsive, Other ...Motor Strength: LUE, LLE, RUE, RLE Psychiatric: Yes: Other Labs: Laboratory Results - last 24 hr 01/04/18 01/04/18 01/04/18 08:30 08:30 09:25 WBC 11.5 H D RBC 1.87 L D Hgb 5.8 L* D Hct 17.6 L D MCV 94.2 MCH 30.8 MCHC 32.7 RDW 14.4 Plt Count 118 L D MPV 9.1 Neutrophils % 92.0 H D Lymphocytes % 5.6 L D Monocytes % 1.9 L Eosinophils % 0.0 D Basophils % 0.5 PT with INR Cancelled INR Cancelled PTT (Actin FS) Cancelled Sodium Potassium Chloride Carbon Dioxide Anion Gap BUN Creatinine Creat Clearance w eGFR Random Glucose Lactic Acid Calcium Magnesium Ferritin Total Bilirubin AST ALT Alkaline Phosphatase Total Protein Albumin Urine Color Urine Appearance Urine pH Ur Specific [place] Urine Protein Urine Glucose (UA) Urine Ketones Urine Blood Urine Nitrite Urine Bilirubin Urine Urobilinogen Ur Leukocyte Esterase Urine WBC (Auto) Urine RBC (Auto) Urine Bacteria Hyaline Casts Urine Mucus Ur Random Sodium Ur Random Potassium Ur Random Chloride Urine Creatinine Blood Type A POSITIVE Antibody Screen Negative Crossmatch See Detail 01/04/18 01/04/18 01/04/18 10:20 10:43 11:30 WBC RBC Hgb Hct MCV MCH MCHC RDW Plt Count MPV Neutrophils % Lymphocytes % Monocytes % Eosinophils % Basophils % PT with INR 16.60 H INR 1.47 H PTT (Actin FS) 23.1 L Sodium Potassium Chloride Carbon Dioxide Anion Gap BUN Creatinine Creat Clearance w eGFR Random Glucose Lactic Acid 3.6 H* Calcium Magnesium Ferritin Total Bilirubin AST ALT Alkaline Phosphatase Total Protein Albumin Urine Color Urine Appearance Urine pH Ur Specific [place] Urine Protein Urine Glucose (UA) Urine Ketones Urine Blood Urine Nitrite Urine Bilirubin Urine Urobilinogen Ur Leukocyte Esterase Urine WBC (Auto) Urine RBC (Auto) Urine Bacteria Hyaline Casts Urine Mucus Ur Random Sodium Ur Random Potassium Ur Random Chloride Urine Creatinine Blood Type A POSITIVE Antibody Screen Crossmatch See Detail 01/04/18 01/04/18 01/04/18 20:10 20:10 20:10 WBC 18.7 H D RBC 2.34 L D Hgb 7.1 L D Hct 21.1 L D MCV 90.3 MCH 30.2 MCHC 33.5 RDW 15.0 Plt Count 112 L MPV 9.6 Neutrophils % Lymphocytes % Monocytes % Eosinophils % Basophils % PT with INR INR PTT (Actin FS) Sodium Potassium Chloride Carbon Dioxide Anion Gap BUN Creatinine Creat Clearance w eGFR Random Glucose Lactic Acid Cancelled 3.2 H* Calcium Magnesium Ferritin Total Bilirubin AST ALT Alkaline Phosphatase Total Protein Albumin Urine Color Urine Appearance Urine pH Ur Specific [place] Urine Protein Urine Glucose (UA) Urine Ketones Urine Blood Urine Nitrite Urine Bilirubin Urine Urobilinogen Ur Leukocyte Esterase Urine WBC (Auto) Urine RBC (Auto) Urine Bacteria Hyaline Casts Urine Mucus Ur Random Sodium Ur Random Potassium Ur Random Chloride Urine Creatinine Blood Type Antibody Screen Crossmatch 01/05/18 01/05/18 01/05/18 01:30 01:30 01:30 WBC RBC Hgb Hct MCV MCH MCHC RDW Plt Count MPV Neutrophils % Lymphocytes % Monocytes % Eosinophils % Basophils % PT with INR INR PTT (Actin FS) Sodium Potassium Chloride Carbon Dioxide Anion Gap BUN Creatinine Creat Clearance w eGFR Random Glucose Lactic Acid Calcium Magnesium Ferritin Total Bilirubin AST ALT Alkaline Phosphatase Total Protein Albumin Urine Color Yellow Urine Appearance Clear Urine pH 5.0 Ur Specific [place] 1.026 Urine Protein Negative Urine Glucose (UA) Negative Urine Ketones Negative Urine Blood 2+ H Urine Nitrite Negative Urine Bilirubin Negative Urine Urobilinogen Negative Ur Leukocyte Esterase Negative Urine WBC (Auto) 2 Urine RBC (Auto) 27 Urine Bacteria Rare Hyaline Casts 1 Urine Mucus Rare Ur Random Sodium 21 Ur Random Potassium 69.6 Ur Random Chloride 53 Urine Creatinine 118.0 Blood Type Antibody Screen Crossmatch 01/05/18 01/05/18 01/05/18 01:30 05:30 05:30 WBC 18.5 H 18.6 H RBC 2.38 L 2.67 L Hgb 7.2 L 8.3 L D Hct 21.4 L 23.8 L MCV 89.9 89.2 MCH 30.3 31.0 MCHC 33.7 34.7 RDW 15.0 14.9 Plt Count 107 L 109 L MPV 9.4 9.4 Neutrophils % 85.9 H Lymphocytes % 8.1 D Monocytes % 5.8 D Eosinophils % 0.1 D Basophils % 0.1 PT with INR 15.70 H INR 1.39 H PTT (Actin FS) Sodium Potassium Chloride Carbon Dioxide Anion Gap BUN Creatinine Creat Clearance w eGFR Random Glucose Lactic Acid Calcium Magnesium Ferritin Total Bilirubin AST ALT Alkaline Phosphatase Total Protein Albumin Urine Color Urine Appearance Urine pH Ur Specific [place] Urine Protein Urine Glucose (UA) Urine Ketones Urine Blood Urine Nitrite Urine Bilirubin Urine Urobilinogen Ur Leukocyte Esterase Urine WBC (Auto) Urine RBC (Auto) Urine Bacteria Hyaline Casts Urine Mucus Ur Random Sodium Ur Random Potassium Ur Random Chloride Urine Creatinine Blood Type Antibody Screen Crossmatch 01/05/18 01/05/18 05:30 05:30 WBC RBC Hgb Hct MCV MCH MCHC RDW Plt Count MPV Neutrophils % Lymphocytes % Monocytes % Eosinophils % Basophils % PT with INR INR PTT (Actin FS) 26.6 L Sodium 157 H Potassium 3.7 Chloride 126 H Carbon Dioxide 25 Anion Gap 6 L BUN 46 H D Creatinine 0.8 D Creat Clearance w eGFR > 60 Random Glucose 111 H D Lactic Acid Calcium 6.5 L* Magnesium 1.6 L Ferritin 289.980 Total Bilirubin 3.1 H D AST 15 D ALT 12 Alkaline Phosphatase 36 L D Total Protein 3.9 L D Albumin 2.0 L Urine Color Urine Appearance Urine pH Ur Specific [place] Urine Protein Urine Glucose (UA) Urine Ketones Urine Blood Urine Nitrite Urine Bilirubin Urine Urobilinogen Ur Leukocyte Esterase Urine WBC (Auto) Urine RBC (Auto) Urine Bacteria Hyaline Casts Urine Mucus Ur Random Sodium Ur Random Potassium Ur Random Chloride Urine Creatinine Blood Type Antibody Screen Crossmatch Problem List - Problems (1) Dementia Code(s): F03.90 - UNSPECIFIED DEMENTIA WITHOUT BEHAVIORAL DISTURBANCE (2) GI bleed Code(s): K92.2 - GASTROINTESTINAL HEMORRHAGE, UNSPECIFIED Qualifiers: GI bleed type/associated pathology: unspecified gastrointestinal hemorrhage type Qualified Code(s): K92.2 - Gastrointestinal hemorrhage, unspecified (3) Chest pain Code(s): R07.9 - CHEST PAIN, UNSPECIFIED (4) Hypoxia Code(s): R09.02 - HYPOXEMIA (5) Transaminitis: (?) due to shock liver (6) S/P hemostasis of a large, flat, actively bleeding ulcer in the duodenal bulb. Assessment/Plan Normal transfusion thresholds ABX per ID Change IVF Strict I&O O2 as needed to maintain saturation Follow CBC ICU monitoring IV PPI PO when OK with surgery Dr Powell Critical care time spent in reviewing chart, evaluating patient and formulating plan - 36 minutes.
[2018-01-05] MEDS ORDERED: MAGNESIUM SULF 50% (8.12 MEQ/2 ML-1 GM VIAL) IVPB ONE (09:39)
[2018-01-05] MEDS ORDERED: D5-1/2NS+20 MEQ KCL - 20 MEQ/1,000 ML INFUS.BAG IV SCH (09:45)
[2018-01-05] MEDS ORDERED: MAGNESIUM SULFATE IN WATER 2 GM/50 ML IVPB IVPB ONE (10:00)
[2018-01-05] MEDS ORDERED: CEFTRIAXONE 1 GM in DEXTROSE 5%-WATER - 50 ML IVPB SCH (10:00)
[2018-01-05] MEDS: PANTOPRAZOLE SODIUM 160 MG in SODIUM CHLORIDE 290 ML IVPB SCH (11:53)
[2018-01-05] MEDS ORDERED: PHYTONADIONE 10 MG/1 ML AMP IVPB ONE (11:58)
--- NOTE | 2018-01-05 11:58 | PN ---
GI Progress Note Subjective: GI NOte( covering Dr Andersen): Had a large maroon/black BM this AM. Hb over 8 but await repeat as 12 noon. INR elevated. Will give Vitamin K - Objective Vital Signs: Vital Signs Temperature 99.1 F 01/05/18 10:00 Pulse Rate 77 01/05/18 10:00 Respiratory Rate 12 01/05/18 10:00 Blood Pressure 113/71 01/05/18 10:00 O2 Sat by Pulse Oximetry (%) 98 01/04/18 21:03 Laboratory Tests 01/04/18 01/05/18 01/05/18 09:25 01:30 05:30 Hgb 5.8 L* D 7.2 L 8.3 L D Hct 17.6 L D 21.4 L 23.8 L Plt Count 109 L PT with INR INR 01/05/18 05:30 Hgb Hct Plt Count PT with INR 15.70 H INR 1.39 H Constitutional: Calm ...Auscultate: Yes: Normoactive Bowel Sounds ...Palpate: Yes: Soft, Other (nontender) Labs: CBC, BMP 01/05/18 05:30 01/05/18 05:30 INR, PTT INR 1.39 (0.82-1.09) H 01/05/18 05:30 Problem List - Problems (1) Duodenal ulcer hemorrhage Assessment/Plan: Not clear whether or not bleeding has stopped. Await repeat CBC. If failing may need to resort to IR embolization. Will give Vitamin K . Keep NPO Code(s): K26.4 - CHRONIC OR UNSPECIFIED DUODENAL ULCER WITH HEMORRHAGE
--- NOTE | 2018-01-05 12:05 | PN ---
Progress Note, Physician History of Present Illness: IN BED IN ICU - Current Medication List Current Medications: Active Medications Acetaminophen (Ofirmev Injection -) 1,000 mg IVPB Q6H PRN PRN Reason: FEVER Last Admin: 01/05/18 04:11 Dose: 1,000 mg Chlorhexidine Gluconate (Hibiclens For Decolonization -) 1 applic TP HS [facility] Last Admin: 01/04/18 22:00 Dose: 1 applic Pantoprazole Sodium 160 mg/ (Sodium Chloride) 290 mls @ 14.5 mls/hr IVPB Q20H [facility] Last Admin: 01/05/18 11:53 Dose: 14.5 mls/hr Ceftriaxone Sodium 1 gm/ (Dextrose) 50 mls @ 100 mls/hr IVPB DAILY [facility] Last Admin: 01/05/18 09:19 Dose: 100 mls/hr Potassium Chloride/Dextrose/Sod Cl (D5-1/2ns+20 Meq Kcl -) 20 meq in 1,000 mls @ 50 mls/hr IV ASDIR [facility] Last Admin: 01/05/18 09:44 Dose: 50 mls/hr Mupirocin (Bactroban Ointment (For Decolonization) -) 1 applic NS BID [facility] Stop: 01/09/18 21:59 Last Admin: 01/05/18 09:05 Dose: 1 applic Sucralfate (Carafate Oral Suspension -) 1 gm PO ACHS [facility] Last Admin: 01/05/18 11:49 Dose: 1 gm - Objective Vital Signs: Vital Signs Temperature 99.1 F 01/05/18 10:00 Pulse Rate 77 01/05/18 10:00 Respiratory Rate 12 01/05/18 10:00 Blood Pressure 113/71 01/05/18 10:00 O2 Sat by Pulse Oximetry (%) 98 01/04/18 21:03 Cardiovascular: Yes: S1, S2 Respiratory: Yes: Regular, CTA Bilaterally Gastrointestinal: Yes: Normal Bowel Sounds, Soft Labs: CBC, BMP 01/05/18 05:30 01/05/18 05:30 INR, PTT INR 1.39 (0.82-1.09) H 01/05/18 05:30 Problem List - Problems (1) GI bleed Assessment/Plan: -S/P EGD -BLEEDING ULCER -PPI -CARAFATE -GI ON BOARD Code(s): K92.2 - GASTROINTESTINAL HEMORRHAGE, UNSPECIFIED Qualifiers: GI bleed type/associated pathology: unspecified gastrointestinal hemorrhage type Qualified Code(s): K92.2 - Gastrointestinal hemorrhage, unspecified (2) Leukocytosis Assessment/Plan: -leukocytosis may be partially due to stress of GI bleed Code(s): D72.829 - ELEVATED WHITE BLOOD CELL COUNT, UNSPECIFIED (3) Fever Assessment/Plan: fever/leukocytosis/pyuria - rocephin until cultures are back for possible UTI Code(s): R50.9 - FEVER, UNSPECIFIED
[2018-01-05 12:37] LABS: HEMATOCRIT 23.4 % (35.4-49); HEMOGLOBIN 8.1 GM/dL (11.7-16.9); MCHC 34.7 g/dl (32.0-35.9); MEAN CELL VOLUME 89.2 fl (80-96); MEAN PLT VOLUME 9.3 fl (7.5-11.1); PLATELET COUNT 107 K/MM3 (134-434); RBC 2.62 M/mm3 (4.00-5.60); RDW 15.4 % (11.9-15.9); WHITE BLOOD COUNT 16.8 K/mm3 (4.0-10.0)
--- NOTE | 2018-01-05 14:42 | PN ---
Progress Note (short form) - Note Progress Note: covering dr ornelas icu 1. SONAM 2. lactic acidosis 3. GI bleed 4. hypotension 5. dementia 6. hypernatremia 7. anemia Current Medications Acetaminophen (Ofirmev Injection -) 1,000 mg IVPB Q6H PRN PRN Reason: FEVER Last Admin: 01/05/18 04:11 Dose: 1,000 mg Chlorhexidine Gluconate (Hibiclens For Decolonization -) 1 applic TP HS [facility] Last Admin: 01/04/18 22:00 Dose: 1 applic Pantoprazole Sodium 160 mg/ (Sodium Chloride) 290 mls @ 14.5 mls/hr IVPB Q20H [facility] Last Admin: 01/05/18 11:53 Dose: 14.5 mls/hr Ceftriaxone Sodium 1 gm/ (Dextrose) 50 mls @ 100 mls/hr IVPB DAILY [facility] Last Admin: 01/05/18 09:19 Dose: 100 mls/hr Potassium Chloride/Dextrose/Sod Cl (D5-1/2ns+20 Meq Kcl -) 20 meq in 1,000 mls @ 50 mls/hr IV ASDIR [facility] Last Admin: 01/05/18 09:44 Dose: 50 mls/hr Mupirocin (Bactroban Ointment (For Decolonization) -) 1 applic NS BID [facility] Stop: 01/09/18 21:59 Last Admin: 01/05/18 09:05 Dose: 1 applic Sucralfate (Carafate Oral Suspension -) 1 gm PO ACHS [facility] Last Admin: 01/05/18 11:49 Dose: 1 gm Last Vital Signs Temp Pulse Resp BP Pulse Ox 99.1 F 79 15 102/54 96 01/05/18 10:00 01/05/18 12:00 01/05/18 12:00 01/05/18 12:00 01/05/18 09:00 lungs clear heart reg abd soft ext no edema CBC, BMP 01/05/18 12:15 01/05/18 05:30 Intake & Output 01/02/18 01/03/18 01/04/18 01/05/18 23:59 23:59 23:59 23:59 Intake Total 950 1172 Output Total 50 200 Balance 900 972 Weight 165 lb 2.02 oz 165 lb 2.02 oz IMP- hypernatremia dehydration sonam/prerenal- already resolving with ivf Plan- continue hypotonic ivf monitor urine output flow serum sodium
[2018-01-05 15:23] LABS: PLATELET ESTIMATE SLT DECREASE
--- NOTE | 2018-01-05 17:28 | CONSULT ---
Consult Consult Specialty:: General Surgery Referred by:: Eron Patel Reason for Consultation:: UGIB s/p endoscopic control - History of Present Illness Chief Complaint: abdominal pain, rectal bleeding History of Present Illness: 72yo M resident of [facility] with HTN, HLD, CVAs, brain aneurysms s/p clipping x1, nephrolithiasis, dementia (starting after second aneurysm), left- sided muscular weakness/some atrophy per daughter, was admitted via ER yesterday with acute rectal bleeding and abdominal pain, had hypotension which worsened en route to ER, has had blood transfusion and EGD with control of bleeding duodenal bulb ulcer last evening. Clips and epinephrine injection did not control bleeding, but heater probe did. He has had maroon stool this am, but last 2 Hb 8.3 and 8.1. Surgery was consulted to evaluate. Plan if rebleeding occurs is for IR intervention. Pt seen and examined in ICU bed, daughter (HCP) and son-in-law at bedside. He denies pain and indicates he feels hungry. No BM now/within last few hours. Camacho catheter in place. Pt in good spirits, answers simple questions and follows simple commands. Denies having had headache, dizziness, passing out, n/v ; no more abdominal pain. - History Source History Provided By: Patient, Family Member (daughter Mary at bedside), Medical Record Limitations to Obtaining History: Dementia - Past Medical History [employer]: Yes: CVA, Dementia, Other (brain aneurysms x2 (one clipped, one stopped on its own)) Cardio/Vascular: Yes: Aneurysm (brain - see above), HTN, Hyperlipdemia Gastrointestinal: Yes: Constipation Renal/: Yes: Renal Calculi (as younger man) Musculoskeletal: Yes: Other (left-sided weakness - waxes and wanes depending on physical therapy attention) - Past Surgical History Past Surgical History: Yes: Colonoscopy, Upper Endoscopy Additional Surgical History: lithotripsy - Alcohol/Substance Use Hx Alcohol Use: No (quit 30 yrs ago) History of Substance Use: reports: None - Smoking History Smoking history: Former smoker Have you smoked in the past 12 months: No If you are a former smoker, when did you quit?: 40 yrs ago - Social History Usual Living Arrangement: Jail Home Medications - Allergies Allergies/Adverse Reactions: Allergies Allergy/AdvReac Type Severity Reaction Status Date / Time No Known Allergies Allergy Verified 04/13/15 10:11 - Home Medications Home Medications: Ambulatory Orders Amlodipine Besylate [Norvasc -] 5 mg PO DAILY 01/04/18 Doxazosin Mesylate [Cardura -] 1 mg PO HS 01/04/18 Gabapentin [Neurontin] 100 mg PO HS 01/04/18 Polyethylene Glycol 3350 [Gavilax] 17 gm PO DAILY 01/04/18 Quetiapine Fumarate [Seroquel] 100 mg PO HS 01/04/18 Family Disease History - Family Disease History Family History: Unable to Obtain (noncontributory) Review of Systems Unable to obtain ROS, reason: ltd - pt dementia - Review of Systems Cardiovascular: denies: Chest Pain Respiratory: denies: SOB Gastrointestinal: reports: Abdominal Pain (with hpi), Constipation (tends to), Rectal Bleeding (with hpi). denies: Nausea, Vomiting Musculoskeletal: reports: Decreased ROM (left knee with limited extension), Muscle Weakness (left arm and leg) Neurological: reports: Confusion (baseline dementia). denies: Dizziness, Headache Physical Exam Vital Signs: Vital Signs Temperature 99.0 F 01/05/18 14:00 Pulse Rate 64 01/05/18 16:00 Respiratory Rate 21 01/05/18 16:00 Blood Pressure 116/54 01/05/18 16:00 O2 Sat by Pulse Oximetry (%) 96 01/05/18 09:00 Constitutional: Yes: Well Nourished, No Distress, Calm Eyes: Yes: Conjunctiva Clear, EOM Intact HENT: Yes: Atraumatic, Normocephalic Neck: Yes: Supple, Trachea Midline Cardiovascular: Yes: Regular Rate and Rhythm, Murmur Respiratory: Yes: Regular, CTA Bilaterally Gastrointestinal: Yes: Soft, Hyperactive Bowel Sounds. No: Distention, Rectal Bleeding (no BM currently), Tenderness ...Rectal Exam: Yes: Deferred Renal/: Yes: Camacho Present. No: Hematuria Musculoskeletal: Yes: Joint Stiffness (left knee partially flexed, cannot fully extend), Muscle Weakness (left arm and leg somewhat) Extremities: Yes: Other (left hand with limited finger extension). No: Cool, Cyanosis Edema: No Peripheral Pulses WNL: Yes Integumentary: No: Jaundice, Rash Neurological: Yes: Alert, Oriented (to name, family, simple questions), Confusion (baseline dementia) Psychiatric: Yes: Alert. No: Agitated Labs: CBC, BMP 01/05/18 12:15 01/05/18 05:30 Abnormal Lab Results 01/04/18 01/04/18 01/04/18 10:43 20:10 20:10 WBC 18.7 H D RBC 2.34 L D Hgb 7.1 L D Hct 21.1 L D Plt Count 112 L Neutrophils % Neutrophils % (Manual) Lymphocytes % (Manual) Monocytes % (Manual) PT with INR INR PTT (Actin FS) Sodium Chloride Anion Gap BUN Random Glucose Lactic Acid 3.2 H* Calcium Magnesium Total Bilirubin Alkaline Phosphatase Total Protein Albumin Urine Blood Crossmatch See Detail 01/05/18 01/05/18 01/05/18 01:30 01:30 05:30 WBC 18.5 H 18.6 H RBC 2.38 L 2.67 L Hgb 7.2 L 8.3 L D Hct 21.4 L 23.8 L Plt Count 107 L 109 L Neutrophils % 85.9 H Neutrophils % (Manual) Lymphocytes % (Manual) Monocytes % (Manual) PT with INR INR PTT (Actin FS) Sodium Chloride Anion Gap BUN Random Glucose Lactic Acid Calcium Magnesium Total Bilirubin Alkaline Phosphatase Total Protein Albumin Urine Blood 2+ H Crossmatch 01/05/18 01/05/18 01/05/18 05:30 05:30 05:30 WBC RBC Hgb Hct Plt Count Neutrophils % Neutrophils % (Manual) Lymphocytes % (Manual) Monocytes % (Manual) PT with INR 15.70 H INR 1.39 H PTT (Actin FS) 26.6 L Sodium 157 H Chloride 126 H Anion Gap 6 L BUN 46 H D Random Glucose 111 H D Lactic Acid Calcium 6.5 L* Magnesium 1.6 L Total Bilirubin 3.1 H D Alkaline Phosphatase 36 L D Total Protein 3.9 L D Albumin 2.0 L Urine Blood Crossmatch 01/05/18 01/05/18 09:00 12:15 WBC 16.8 H RBC 2.62 L Hgb 8.1 L Hct 23.4 L Plt Count 107 L Neutrophils % Neutrophils % (Manual) 91.0 H* Lymphocytes % (Manual) 4.0 L Monocytes % (Manual) 3 L PT with INR INR PTT (Actin FS) Sodium Chloride Anion Gap BUN Random Glucose Lactic Acid 2.3 H* Calcium Magnesium Total Bilirubin Alkaline Phosphatase Total Protein Albumin Urine Blood Crossmatch lactate not <2 yet Hb stable last 2 draws hypernatremia wbc still elevated plts just over 100, stable INR, PTT INR 1.39 (0.82-1.09) H 01/05/18 05:30 got vit K yesterday and today Urine Test Results Urine Color Yellow 01/05/18 01:30 Urine Appearance Clear 01/05/18 01:30 Urine pH 5.0 (5.0-8.0) 01/05/18 01:30 Ur Specific [place] 1.026 (1.001-1.035) 01/05/18 01:30 Urine Protein Negative (NEGATIVE) 01/05/18 01:30 Urine Glucose (UA) Negative (NEGATIVE) 01/05/18 01:30 Urine Ketones Negative (NEGATIVE) 01/05/18 01:30 Urine Blood 2+ (NEGATIVE) H 01/05/18 01:30 Urine Nitrite Negative (NEGATIVE) 01/05/18 01:30 Urine Bilirubin Negative (<2.0 mg/dL) 01/05/18 01:30 Ur Leukocyte Esterase Negative (NEGATIVE) 01/05/18 01:30 Ur Epithelial Cells Rare /HPF (FEW) 01/04/18 09:00 Urine Bacteria Rare /hpf (NONE SEEN) 01/05/18 01:30 Urine Mucus Rare 01/05/18 01:30 Problem List - Problems (1) Duodenal ulcer hemorrhage Assessment/Plan: admitted to medicine, in ICU, DNR/DNI with daughter HCP s/p EGD ultimately with control of bleeding from duodenal bulb ulcer has been on PPI drip, no anticoagulant had some maroon stool earlier, not unexpected until all blood clears GI tract H/H stable last two draws at 8, up from previous HD stable continue to trend H/H, labs if stable through/into tomorrow, would resume clears and advance diet as per GI if rebleeds, agree with IR for embolization possibility of surgical intervention in this patient is remote, and discussed with family that it would entail general anesthesia, rescinding DNR/DNI temporarily, and would likely carry high risk of morbidity or mortality, given pt's age, comorbidities and presumed emergent nature of procedure if required Thank you for the opportunity to participate in the care of this patient. This patient is critically ill. Time spent reviewing chart, examining patient, talking with providers and/or family and documentation is 35 minutes Code(s): K26.4 - CHRONIC OR UNSPECIFIED DUODENAL ULCER WITH HEMORRHAGE (2) Lactic acidosis Assessment/Plan: continue IV hydration monitor until normal Code(s): E87.2 - ACIDOSIS (3) Leukocytosis Assessment/Plan: secondary to inflammatory process vs infectious? on antibiotics follow to resolution Code(s): D72.829 - ELEVATED WHITE BLOOD CELL COUNT, UNSPECIFIED Qualifiers: Leukocytosis type: unspecified Qualified Code(s): D72.829 - Elevated white blood cell count, unspecified (4) Hypernatremia Assessment/Plan: pt's fluids changed today likely element of prerenal/dehydration continue IV fluids monitor until resolved Code(s): E87.0 - HYPEROSMOLALITY AND HYPERNATREMIA (5) Dementia Assessment/Plan: would continue home psychoactive meds proactively treat constipation with laxatives and stool softener prn Code(s): F03.90 - UNSPECIFIED DEMENTIA WITHOUT BEHAVIORAL DISTURBANCE Qualifiers: Dementia type: unspecified type Dementia behavioral disturbance: without behavioral disturbance Qualified Code(s): F03.90 - Unspecified dementia without behavioral disturbance
[2018-01-05] MEDS: CHLORHEXIDINE GLUCONATE 4% CLEANSER FOR DECOLONIZATION TP SCH (21:22)
[2018-01-05 21:53] LABS: HEMATOCRIT 22.2 % (35.4-49); HEMOGLOBIN 7.8 GM/dL (11.7-16.9); MCH 31.2 pg (25.7-33.7); MEAN CELL VOLUME 89.2 fl (80-96); MEAN PLT VOLUME 9.2 fl (7.5-11.1); PLATELET COUNT 110 K/MM3 (134-434); RBC 2.49 M/mm3 (4.00-5.60); RDW 15.1 % (11.9-15.9); WHITE BLOOD COUNT 13.2 K/mm3 (4.0-10.0)
[2018-01-06] MEDS: SUCRALFATE 1 GM/10 ML UNIT DOSE CUPS PO SCH ×4 (06:37→22:11)
[2018-01-06 06:50] LABS: BASO % 0.4 % (0-2.0); EOS % 2.3 % (0-4.5); HEMATOCRIT 20.6 % (35.4-49); HEMOGLOBIN 7.3 GM/dL (11.7-16.9); LYMPH % 12.9 % (8-40); MCH 31.7 pg (25.7-33.7); MCHC 35.7 g/dl (32.0-35.9); MEAN PLT VOLUME 9.5 fl (7.5-11.1); MONO % 5.7 % (3.8-10.2); NEUT % 78.7 % (42.8-82.8); PLATELET COUNT 107 K/MM3 (134-434); RBC 2.31 M/mm3 (4.00-5.60); RDW 15.4 % (11.9-15.9); WHITE BLOOD COUNT 10.6 K/mm3 (4.0-10.0)
[2018-01-06 07:00] LABS: INR 1.27 (0.82-1.09); PROTHROMBIN TIME (PATIENT) 14.4 SEC (9.98-11.88)
[2018-01-06 07:32] LABS: ANION GAP 2 (8-16); BLOOD UREA NITROGEN 18 mg/dL (7-18); CHLORIDE 122 mmol/L (98-107); CO2 29 mmol/L (21-32); GLUCOSE,RANDOM 100 mg/dL (74-106); POTASSIUM 3.1 mmol/L (3.5-5.1); SODIUM 153 mmol/L (136-145)
[2018-01-06 07:36] LABS: ALK PHOS 39 U/L (45-117); BILIRUBIN,TOTAL 0.9 mg/dL (0.2-1.0); CREATININE 0.6 mg/dL (0.7-1.3); SGOT/AST 21 U/L (15-37); SGPT/ALT 14 U/L (12-78); TOT PROT 4.1 g/dl (6.4-8.2)
[2018-01-06 07:40] LABS: CALCIUM 6.4 mg/dL (8.5-10.1)
[2018-01-06] MEDS: PANTOPRAZOLE SODIUM 160 MG in SODIUM CHLORIDE 290 ML IVPB SCH (08:00)
--- NOTE | 2018-01-06 08:39 | PN ---
Progress Note (short form) - Note Progress Note: Patient seen and examiend in the ICU. Awake and alert. No occult bleeding, but slight drift in H&H. Denies CP or SOB. Denies GI symptoms. Intake & Output 01/03/18 01/04/18 01/05/18 01/06/18 23:59 23:59 23:59 23:59 Intake Total 950 2341 430 Output Total 50 1500 300 Balance 900 841 130 Weight 165 lb 2.02 oz 165 lb 2.02 oz 168 lb 8 oz Last Vital Signs Temp Pulse Resp BP Pulse Ox 98.1 F 64 18 95/54 95 01/06/18 06:00 01/06/18 06:00 01/06/18 06:00 01/06/18 06:00 01/05/18 20:24 Active Medications Acetaminophen (Ofirmev Injection -) 1,000 mg IVPB Q6H PRN PRN Reason: FEVER Last Admin: 01/05/18 04:11 Dose: 1,000 mg Chlorhexidine Gluconate (Hibiclens For Decolonization -) 1 applic TP HS [facility] Last Admin: 01/05/18 21:22 Dose: 1 applic Pantoprazole Sodium 160 mg/ (Sodium Chloride) 290 mls @ 14.5 mls/hr IVPB Q20H [facility] Last Admin: 01/05/18 11:53 Dose: 14.5 mls/hr Ceftriaxone Sodium 1 gm/ (Dextrose) 50 mls @ 100 mls/hr IVPB DAILY [facility] Last Admin: 01/05/18 09:19 Dose: 100 mls/hr Potassium Chloride/Dextrose/Sod Cl (D5-1/2ns+20 Meq Kcl -) 20 meq in 1,000 mls @ 50 mls/hr IV ASDIR [facility] Last Admin: 01/05/18 09:44 Dose: 50 mls/hr Mupirocin (Bactroban Ointment (For Decolonization) -) 1 applic NS BID [facility] Stop: 01/09/18 21:59 Last Admin: 01/05/18 21:22 Dose: 1 applic Sucralfate (Carafate Oral Suspension -) 1 gm PO ACHS [facility] Last Admin: 01/06/18 06:37 Dose: 1 gm Constitutional: Yes: NAD Eyes: Yes: WNL HENT: Yes: WNL Neck: Yes: WNL Cardiovascular: Yes: Pulse Irregular, Murmur Respiratory: Yes: On Nasal O2, diminished at the bases Gastrointestinal: Yes: No Tenderness, (+) BS ...Rectal Exam: Yes: Other Renal/: Yes: Incontinence Musculoskeletal: Yes: Muscle Weakness Extremities: Yes: Other Edema: Yes Edema: LLE: Trace, RLE: Trace Peripheral Pulses WNL: Yes Integumentary: Yes: Other Wound/Incision: Yes: Dressing Dry and Intact Neurological: Yes: Pre-Existing Deficit ...Motor Strength: LUE, LLE, RUE, RLE Psychiatric: Yes: Other Labs: Laboratory Results - last 24 hr 01/05/18 01/05/18 01/05/18 09:00 12:15 21:30 WBC 16.8 H 13.2 H RBC 2.62 L 2.49 L Hgb 8.1 L 7.8 L Hct 23.4 L 22.2 L MCV 89.2 89.2 MCH 31.0 31.2 MCHC 34.7 35.0 RDW 15.4 15.1 Plt Count 107 L 110 L MPV 9.3 9.2 Total Counted 100 Neutrophils % No Result Required. Neutrophils % (Manual) 91.0 H* Band Neutrophils % 1.0 Lymphocytes % No Result Required. Lymphocytes % (Manual) 4.0 L Monocytes % Monocytes % (Manual) 3 L Eosinophils % Basophils % Platelet Estimate Slt decrease PT with INR INR Sodium Potassium Chloride Carbon Dioxide Anion Gap BUN Creatinine Creat Clearance w eGFR Random Glucose Lactic Acid 2.3 H* Calcium Phosphorus Magnesium Total Bilirubin AST ALT Alkaline Phosphatase Total Protein Albumin 01/06/18 01/06/18 01/06/18 05:30 05:30 05:30 WBC 10.6 H RBC 2.31 L Hgb 7.3 L Hct 20.6 L MCV 89.0 MCH 31.7 MCHC 35.7 RDW 15.4 Plt Count 107 L MPV 9.5 Total Counted Neutrophils % 78.7 Neutrophils % (Manual) Band Neutrophils % Lymphocytes % 12.9 D Lymphocytes % (Manual) Monocytes % 5.7 Monocytes % (Manual) Eosinophils % 2.3 D Basophils % 0.4 D Platelet Estimate PT with INR 14.40 H INR 1.27 H Sodium 153 H Potassium 3.1 L Chloride 122 H Carbon Dioxide 29 Anion Gap 2 L BUN 18 D Creatinine 0.6 L D Creat Clearance w eGFR > 60 Random Glucose 100 Lactic Acid Calcium 6.4 L* Phosphorus 2.0 L Magnesium 2.0 D Total Bilirubin 0.9 D AST 21 D ALT 14 Alkaline Phosphatase 39 L Total Protein 4.1 L Albumin 2.0 L 01/06/18 05:30 WBC RBC Hgb Hct MCV MCH MCHC RDW Plt Count MPV Total Counted Neutrophils % Neutrophils % (Manual) Band Neutrophils % Lymphocytes % Lymphocytes % (Manual) Monocytes % Monocytes % (Manual) Eosinophils % Basophils % Platelet Estimate PT with INR INR Sodium Potassium Chloride Carbon Dioxide Anion Gap BUN Creatinine Creat Clearance w eGFR Random Glucose Lactic Acid 1.4 Calcium Phosphorus Magnesium Total Bilirubin AST ALT Alkaline Phosphatase Total Protein Albumin Problem List - Problems (1) Dementia Code(s): F03.90 - UNSPECIFIED DEMENTIA WITHOUT BEHAVIORAL DISTURBANCE (2) GI bleed Code(s): K92.2 - GASTROINTESTINAL HEMORRHAGE, UNSPECIFIED Qualifiers: GI bleed type/associated pathology: unspecified gastrointestinal hemorrhage type Qualified Code(s): K92.2 - Gastrointestinal hemorrhage, unspecified (3) Chest pain Code(s): R07.9 - CHEST PAIN, UNSPECIFIED (4) Hypoxia Code(s): R09.02 - HYPOXEMIA (5) Transaminitis: (?) due to shock liver (6) S/P hemostasis of a large, flat, actively bleeding ulcer in the duodenal bulb. Assessment/Plan Normal transfusion thresholds ABX per ID Change IVF Strict I&O O2 as needed to maintain saturation Follow CBC IV PPI PO when OK with GI / surgery Dr Powell Critical care time spent in reviewing chart, evaluating patient and formulating plan - 36 minutes.
[2018-01-06] MEDS ORDERED: CALCIUM GLUCONATE 10% - 1,000 MG/10 ML VIAL IVPB ONE (09:00)
[2018-01-06] MEDS: MUPIROCIN 2% TOPICAL OINTMENT FOR DECOLONIZATION NS SCH ×2 (09:03→22:11)
[2018-01-06] MEDS: D5-1/2NS+40 MEQ KCL - 40 MEQ/1,000 ML INFUS.BAG IV SCH (09:03)
--- NOTE | 2018-01-06 09:19 | PN ---
Progress Note (short form) - Note Progress Note: awake and alert Vital Signs Period Temp Pulse Resp BP Sys/Henning Pulse Ox Last 24 Hr 98.1 F-99.1 F 60-79 12-22 95-116/54-77 94-95 cor-rrr lungs clear abd- soft, nt ext no edema CBC, BMP 01/06/18 05:30 01/06/18 05:30 Microbiology 01/04/18 07:41 Blood - Peripheral Venous Blood Culture - Preliminary NO GROWTH OBTAINED AFTER 48 HOURS, INCUBATION TO CONTINUE FOR 3 DAYS. 01/04/18 07:41 Blood - Peripheral Venous Blood Culture - Preliminary NO GROWTH OBTAINED AFTER 48 HOURS, INCUBATION TO CONTINUE FOR 3 DAYS. 01/04/18 07:55 Urine - Urine Clean Catch Urine Culture - Final NO GROWTH OBTAINED imp/reccd GI bleed doing well afebrile cultures negative d/c antibiotics please call back if needed Problem List - Problems (1) GI bleed Code(s): K92.2 - GASTROINTESTINAL HEMORRHAGE, UNSPECIFIED Qualifiers: GI bleed type/associated pathology: unspecified gastrointestinal hemorrhage type Qualified Code(s): K92.2 - Gastrointestinal hemorrhage, unspecified (2) Fever Code(s): R50.9 - FEVER, UNSPECIFIED (3) Leukocytosis Code(s): D72.829 - ELEVATED WHITE BLOOD CELL COUNT, UNSPECIFIED Qualifiers: Leukocytosis type: unspecified Qualified Code(s): D72.829 - Elevated white blood cell count, unspecified
[2018-01-06 09:32] LABS: SERUM IRON SATURATION > 91 % (15-55); TOTAL IRON BINDING CAPACITY < 183 ug/dL (250-450); UIBC < 17 ug/dL (111-343)
[2018-01-06] MEDS ORDERED: POTASSIUM PHOSPHATE 30 MM in DEXTROSE 5%-WATER - 250 ML IVPB ONE (10:00)
--- NOTE | 2018-01-06 10:09 | PN ---
GI Progress Note Subjective: GI NOte ( covering Dr. Andersen) : NO BMs so far today. Last night's was black and no longer maroon. Denies abdominal pain - Objective Vital Signs: Vital Signs Temperature 98.1 F 01/06/18 06:00 Pulse Rate 63 01/06/18 08:00 Respiratory Rate 18 01/06/18 08:00 Blood Pressure 113/61 01/06/18 08:00 O2 Sat by Pulse Oximetry (%) 94 L 01/06/18 08:48 Laboratory Tests 01/05/18 01/05/18 01/06/18 12:15 21:30 05:30 Hgb 8.1 L 7.8 L 7.3 L Plt Count 107 L PT with INR 01/06/18 05:30 Hgb Plt Count PT with INR 14.40 H Constitutional: Calm Cardiovascular: Yes: Regular Rate and Rhythm Respiratory: Yes: CTA Bilaterally ...Auscultate: Yes: Normoactive Bowel Sounds ...Palpate: Yes: Soft, Other (nontender) Labs: CBC, BMP 01/06/18 05:30 01/06/18 05:30 INR, PTT INR 1.27 (0.82-1.09) H 01/06/18 05:30 Problem List - Problems (1) Duodenal ulcer hemorrhage Assessment/Plan: Bleeding appears to have subsided with Dr Andersen's interventions. Will give another unit of PRBCs. Will try clear liquids. Remains at risk of rebleeding Code(s): K26.4 - CHRONIC OR UNSPECIFIED DUODENAL ULCER WITH HEMORRHAGE
--- NOTE | 2018-01-06 10:15 | PN ---
Progress Note, Physician - Current Medication List Current Medications: Active Medications Acetaminophen (Ofirmev Injection -) 1,000 mg IVPB Q6H PRN PRN Reason: FEVER Last Admin: 01/05/18 04:11 Dose: 1,000 mg Al Hydroxide/Mg Hydroxide (Mylanta Oral Suspension -) 30 ml PO Q6H [facility] Chlorhexidine Gluconate (Hibiclens For Decolonization -) 1 applic TP HS [facility] Last Admin: 01/05/18 21:22 Dose: 1 applic Pantoprazole Sodium 160 mg/ (Sodium Chloride) 290 mls @ 14.5 mls/hr IVPB Q20H [facility] Last Admin: 01/06/18 08:00 Dose: 14.5 mls/hr Dextrose/Sodium Chloride (D5-1/2ns+40 Meq Kcl -) 40 meq in 1,000 mls @ 50 mls/ hr IV ASDIR [facility] Last Admin: 01/06/18 09:03 Dose: 50 mls/hr Potassium Phosphate 30 mm/ (Dextrose) 260 mls @ 62.5 mls/hr IVPB ONCE ONE Stop: 01/06/18 14:09 Mupirocin (Bactroban Ointment (For Decolonization) -) 1 applic NS BID [facility] Stop: 01/09/18 21:59 Last Admin: 01/06/18 09:03 Dose: 1 applic Sucralfate (Carafate Oral Suspension -) 1 gm PO ACHS [facility] Last Admin: 01/06/18 06:37 Dose: 1 gm - Objective Vital Signs: Vital Signs Temperature 98.1 F 01/06/18 06:00 Pulse Rate 63 01/06/18 08:00 Respiratory Rate 18 01/06/18 08:00 Blood Pressure 113/61 01/06/18 08:00 O2 Sat by Pulse Oximetry (%) 94 L 01/06/18 08:48 Cardiovascular: Yes: S1, S2 Respiratory: Yes: Regular, CTA Bilaterally Gastrointestinal: Yes: Normal Bowel Sounds, Soft. No: Tenderness Labs: CBC, BMP 01/06/18 05:30 01/06/18 05:30 INR, PTT INR 1.27 (0.82-1.09) H 01/06/18 05:30 Problem List - Problems (1) GI bleed Assessment/Plan: -S/P EGD -BLEEDING ULCER -PPI -CARAFATE -GI ON BOARD --PRBC 2 UNITS TODAY Code(s): K92.2 - GASTROINTESTINAL HEMORRHAGE, UNSPECIFIED Qualifiers: GI bleed type/associated pathology: unspecified gastrointestinal hemorrhage type Qualified Code(s): K92.2 - Gastrointestinal hemorrhage, unspecified (2) Leukocytosis Assessment/Plan: -leukocytosis may be partially due to stress of GI bleed -Improved--10.6 Code(s): D72.829 - ELEVATED WHITE BLOOD CELL COUNT, UNSPECIFIED Qualifiers: Leukocytosis type: unspecified Qualified Code(s): D72.829 - Elevated white blood cell count, unspecified (3) Fever Assessment/Plan: -fever/leukocytosis/pyuria - rocephin until cultures are back for possible UTI Code(s): R50.9 - FEVER, UNSPECIFIED
[2018-01-06] MEDS ORDERED: PT OWN MED DRAWER 7, Y5N ONE ×2 (10:30→20:57)
--- NOTE | 2018-01-06 12:00 | PN ---
Progress Note (short form) - Note Progress Note: covering dr ornelas icu 1. SONAM 2. lactic acidosis 3. GI bleed 4. hypotension 5. dementia 6. hypernatremia 7. anemia Current Medications Acetaminophen (Ofirmev Injection -) 1,000 mg IVPB Q6H PRN PRN Reason: FEVER Last Admin: 01/05/18 04:11 Dose: 1,000 mg Al Hydroxide/Mg Hydroxide (Mylanta Oral Suspension -) 30 ml PO Q6HPO [facility] Chlorhexidine Gluconate (Hibiclens For Decolonization -) 1 applic TP HS [facility] Last Admin: 01/05/18 21:22 Dose: 1 applic Pantoprazole Sodium 160 mg/ (Sodium Chloride) 290 mls @ 14.5 mls/hr IVPB Q20H [facility] Last Admin: 01/06/18 08:00 Dose: 14.5 mls/hr Dextrose/Sodium Chloride (D5-1/2ns+40 Meq Kcl -) 40 meq in 1,000 mls @ 50 mls/ hr IV ASDIR [facility] Last Admin: 01/06/18 09:03 Dose: 50 mls/hr Potassium Phosphate 30 mm/ (Dextrose) 260 mls @ 62.5 mls/hr IVPB ONCE ONE Stop: 01/06/18 14:09 Last Admin: 01/06/18 10:27 Dose: 62.5 mls/hr Mupirocin (Bactroban Ointment (For Decolonization) -) 1 applic NS BID [facility] Stop: 01/09/18 21:59 Last Admin: 01/06/18 09:03 Dose: 1 applic Sucralfate (Carafate Oral Suspension -) 1 gm PO ACHS [facility] Last Admin: 01/06/18 10:30 Dose: 1 gm Last Vital Signs Temp Pulse Resp BP Pulse Ox 99.4 F 70 18 113/60 94 L 01/06/18 10:00 01/06/18 10:00 01/06/18 10:00 01/06/18 10:00 01/06/18 08:48 alert, pleasant and talkative lungs clear heart reg abd soft ext no edema CBC, BMP 01/06/18 05:30 01/06/18 05:30 Intake & Output 01/03/18 01/04/18 01/05/18 01/06/18 23:59 23:59 23:59 23:59 Intake Total 950 2341 430 Output Total 50 1500 300 Balance 900 841 130 Weight 165 lb 2.02 oz 165 lb 2.02 oz 168 lb 8 oz CBC, BMP 01/05/18 12:15 01/05/18 05:30 Intake & Output 01/02/18 01/03/18 01/04/18 01/05/18 23:59 23:59 23:59 23:59 Intake Total 950 1172 Output Total 50 200 Balance 900 972 Weight 165 lb 2.02 oz 165 lb 2.02 oz IMP- hypernatremia- improving dehydration hemodynamically sonam/prerenal- already resolving with ivf Plan- continue hypotonic ivf monitor urine output flow serum sodium
[2018-01-06] MEDS: MAG HYDROX/AL HYDROX/SIMETH 30 ML UNIT-DOSE CUP PO SCH ×2 (12:21→18:56)
[2018-01-06 19:41] LABS: HEMATOCRIT 25.9 % (35.4-49); HEMOGLOBIN 9.1 GM/dL (11.7-16.9); MCH 31.7 pg (25.7-33.7); MCHC 34.9 g/dl (32.0-35.9); MEAN PLT VOLUME 9.5 fl (7.5-11.1); PLATELET COUNT 118 K/MM3 (134-434); RBC 2.85 M/mm3 (4.00-5.60); RDW 15.1 % (11.9-15.9); WHITE BLOOD COUNT 9.8 K/mm3 (4.0-10.0)
[2018-01-06] MEDS: CHLORHEXIDINE GLUCONATE 4% CLEANSER FOR DECOLONIZATION TP SCH (22:12)
[2018-01-07] MEDS: MAG HYDROX/AL HYDROX/SIMETH 30 ML UNIT-DOSE CUP PO SCH ×6 (01:10→23:31)
[2018-01-07] MEDS ORDERED: PT OWN MED DRAWER 7, Y5N ONE ×3 (02:38→11:23)
[2018-01-07] MEDS: PANTOPRAZOLE SODIUM 160 MG in SODIUM CHLORIDE 290 ML IVPB SCH (02:55)
[2018-01-07 06:23] LABS: BASO % 0.2 % (0-2.0); EOS % 4.2 % (0-4.5); HEMATOCRIT 26.4 % (35.4-49); HEMOGLOBIN 9.3 GM/dL (11.7-16.9); LYMPH % 13.4 % (8-40); MCH 31.7 pg (25.7-33.7); MCHC 35.5 g/dl (32.0-35.9); MEAN CELL VOLUME 89.3 fl (80-96); MEAN PLT VOLUME 9.6 fl (7.5-11.1); MONO % 6.4 % (3.8-10.2); NEUT % 75.8 % (42.8-82.8); PLATELET COUNT 120 K/MM3 (134-434); RBC 2.95 M/mm3 (4.00-5.60); RDW 15.1 % (11.9-15.9); WHITE BLOOD COUNT 9.3 K/mm3 (4.0-10.0)
[2018-01-07] MEDS: SUCRALFATE 1 GM/10 ML UNIT DOSE CUPS PO SCH ×4 (06:29→21:08)
[2018-01-07 06:51] LABS: ALBUMIN 2.2 g/dl (3.4-5.0); ANION GAP 6 (8-16); BILIRUBIN,TOTAL 1.6 mg/dL (0.2-1.0); BLOOD UREA NITROGEN 8 mg/dL (7-18); CHLORIDE 112 mmol/L (98-107); CO2 29 mmol/L (21-32); CREATININE 0.5 mg/dL (0.7-1.3); GLUCOSE,RANDOM 97 mg/dL (74-106); SGOT/AST 31 U/L (15-37); SGPT/ALT 31 U/L (12-78); SODIUM 147 mmol/L (136-145); TOT PROT 4.3 g/dl (6.4-8.2)
[2018-01-07 06:52] LABS: ALK PHOS 53 U/L (45-117)
[2018-01-07 07:11] LABS: CALCIUM 6.7 mg/dL (8.5-10.1)
[2018-01-07] MEDS ORDERED: CALCIUM GLUCONATE 10% - 1,000 MG/10 ML VIAL IVPB ONE (08:30)
[2018-01-07] MEDS ORDERED: POTASSIUM CHLORIDE TABS 20 MEQ TABLET.ER (FP) PO ONE ×4 (08:30→14:15)
[2018-01-07] MEDS: KCL 10 MEQ IVPB 10 MEQ/100 ML INFUS.BAG IVPB SCH ×3 (09:04→12:52)
[2018-01-07] MEDS: D5-1/2NS+40 MEQ KCL - 40 MEQ/1,000 ML INFUS.BAG IV SCH ×3 (09:08→21:08)
[2018-01-07 10:05] LABS: MAGNESIUM 1.8 mg/dL (1.8-2.4)
[2018-01-07 10:06] LABS: PHOSPHOROUS 2.6 mg/dL (2.5-4.9)
--- NOTE | 2018-01-07 10:39 | PN ---
Progress Note, Physician Chief Complaint: IN BED CHART REVIEWED AWAKE TOLERATING CLEAR DIET - Current Medication List Current Medications: Active Medications Acetaminophen (Ofirmev Injection -) 1,000 mg IVPB Q6H PRN PRN Reason: FEVER Last Admin: 01/05/18 04:11 Dose: 1,000 mg Al Hydroxide/Mg Hydroxide (Mylanta Oral Suspension -) 30 ml PO Q6HPO [facility] Last Admin: 01/07/18 06:28 Dose: 30 ml Chlorhexidine Gluconate (Hibiclens For Decolonization -) 1 applic TP HS [facility] Last Admin: 01/06/18 22:12 Dose: 1 applic Pantoprazole Sodium 160 mg/ (Sodium Chloride) 290 mls @ 14.5 mls/hr IVPB Q20H [facility] Last Admin: 01/07/18 02:55 Dose: 14.5 mls/hr Dextrose/Sodium Chloride (D5-1/2ns+40 Meq Kcl -) 40 meq in 1,000 mls @ 50 mls/ hr IV ASDIR [facility] Last Admin: 01/07/18 09:08 Dose: 50 mls/hr Potassium Chloride (Potassium Chloride 10 Meq Premix Ivpb -) 10 meq in 100 mls @ 100 mls/hr IVPB Q60M [facility] Stop: 01/07/18 11:29 Last Admin: 01/07/18 09:04 Dose: 100 mls/hr Mupirocin (Bactroban Ointment (For Decolonization) -) 1 applic NS BID [facility] Stop: 01/09/18 21:59 Last Admin: 01/06/18 22:11 Dose: 1 applic Potassium Chloride (K-Dur -) 20 meq PO ONCE ONE Stop: 01/07/18 13:01 Sucralfate (Carafate Oral Suspension -) 1 gm PO ACHS [facility] Last Admin: 01/07/18 06:29 Dose: 1 gm - Objective Vital Signs: Vital Signs Temperature 98.6 F 01/07/18 06:00 Pulse Rate 60 01/07/18 08:00 Respiratory Rate 20 01/07/18 08:00 Blood Pressure 119/67 01/07/18 08:00 O2 Sat by Pulse Oximetry (%) 94 L 01/06/18 21:00 Constitutional: Yes: Mild Distress Eyes: Yes: WNL HENT: Yes: WNL Neck: Yes: WNL Cardiovascular: Yes: WNL Respiratory: Yes: WNL Gastrointestinal: Yes: WNL Genitourinary: Yes: Incontinence Musculoskeletal: Yes: Muscle Weakness Extremities: Yes: WNL Edema: No Peripheral Pulses WNL: Yes Integumentary: Yes: WNL Wound/Incision: Yes: Clean/Dry Neurological: Yes: Pre-Existing Deficit ...Motor Strength: LLE, RLE Psychiatric: Yes: Other Labs: CBC, BMP 01/07/18 05:20 01/07/18 05:20 INR, PTT INR 1.27 (0.82-1.09) H 01/06/18 05:30 Problem List - Problems (1) Dementia Code(s): F03.90 - UNSPECIFIED DEMENTIA WITHOUT BEHAVIORAL DISTURBANCE Qualifiers: Dementia type: unspecified type Dementia behavioral disturbance: without behavioral disturbance Qualified Code(s): F03.90 - Unspecified dementia without behavioral disturbance (2) GI bleed Code(s): K92.2 - GASTROINTESTINAL HEMORRHAGE, UNSPECIFIED Qualifiers: GI bleed type/associated pathology: unspecified gastrointestinal hemorrhage type Qualified Code(s): K92.2 - Gastrointestinal hemorrhage, unspecified (3) Chest pain Code(s): R07.9 - CHEST PAIN, UNSPECIFIED (4) Hypoxia Code(s): R09.02 - HYPOXEMIA Assessment/Plan DUODNAL HEMMORHAGE MONITOR H/H SUCRALAFATE/PROTONIX/GI CONSULT ADVANCE DIET TOLERATED CAN TRANSFER TO [facility] FLOOR DVT PROPHYLAXIS OOB TO CHAIR PT VIKAS
[2018-01-07] MEDS: MUPIROCIN 2% TOPICAL OINTMENT FOR DECOLONIZATION NS SCH ×2 (11:24→21:10)
[2018-01-07] MEDS ORDERED: PANTOPRAZOLE 40 MG TABLET (FP) PO SCH (11:45)
--- NOTE | 2018-01-07 11:47 | PN ---
Teaching Attending Note Name of Resident: Paul Draper ATTENDING PHYSICIAN STATEMENT I saw and evaluated the patient. I reviewed the resident's note and discussed the case with the resident. I agree with the resident's findings and plan as documented. SUBJECTIVE: Awake and alert. No occult bleeding, H&H stable. Denies CP or SOB. Denies GI symptoms. Intake & Output 01/04/18 01/05/18 01/06/18 01/07/18 23:59 23:59 23:59 23:59 Intake Total 950 2341 3522 626 Output Total 50 1500 1450 400 Balance 807 014 8020 226 Weight 165 lb 2.02 oz 165 lb 2.02 oz 168 lb 8 oz 167 lb 12.8 oz Last Vital Signs Temp Pulse Resp BP Pulse Ox 98.6 F 62 20 114/64 94 L 01/07/18 06:00 01/07/18 10:00 01/07/18 10:41 01/07/18 10:00 01/07/18 10:41 Active Medications Acetaminophen (Ofirmev Injection -) 1,000 mg IVPB Q6H PRN PRN Reason: FEVER Al Hydroxide/Mg Hydroxide (Mylanta Oral Suspension -) 30 ml PO Q6HPO [facility] Chlorhexidine Gluconate (Hibiclens For Decolonization -) 1 applic TP HS [facility] Dextrose/Sodium Chloride (D5-1/2ns+40 Meq Kcl -) 40 meq in 1,000 mls @ 50 mls/ hr IV ASDIR [facility] Mupirocin (Bactroban Ointment (For Decolonization) -) 1 applic NS BID [facility] Stop: 01/09/18 21:59 Pantoprazole Sodium (Protonix -) 40 mg PO BID [facility] Potassium Chloride (K-Dur -) 20 meq PO ONCE ONE Stop: 01/07/18 13:01 Sucralfate (Carafate Oral Suspension -) 1 gm PO ACHS [facility] Constitutional: Yes: NAD Eyes: Yes: WNL HENT: Yes: WNL Neck: Yes: WNL Cardiovascular: Yes: Pulse Irregular, Murmur Respiratory: Yes: On Nasal O2, diminished at the bases Gastrointestinal: Yes: No Tenderness, (+) BS ...Rectal Exam: Yes: Other Renal/: Yes: Incontinence Musculoskeletal: Yes: Muscle Weakness Extremities: Yes: Other Edema: Yes Edema: LLE: Trace, RLE: Trace Peripheral Pulses WNL: Yes Integumentary: Yes: Other Wound/Incision: Yes: Dressing Dry and Intact Neurological: Yes: Pre-Existing Deficit ...Motor Strength: LUE, LLE, RUE, RLE Psychiatric: Yes: Other Labs: Laboratory Results - last 24 hr 01/04/18 01/04/18 01/06/18 08:30 10:43 19:00 WBC 9.8 RBC 2.85 L D Hgb 9.1 L D Hct 25.9 L D MCV 91.0 MCH 31.7 MCHC 34.9 RDW 15.1 Plt Count 118 L MPV 9.5 Neutrophils % Lymphocytes % Monocytes % Eosinophils % Basophils % Sodium Potassium Chloride Carbon Dioxide Anion Gap BUN Creatinine Creat Clearance w eGFR Random Glucose Calcium Phosphorus Magnesium Total Bilirubin AST ALT Alkaline Phosphatase Total Protein Albumin Blood Type A POSITIVE A POSITIVE Antibody Screen Negative Crossmatch See Detail See Detail 01/07/18 01/07/18 01/07/18 05:20 05:20 05:20 WBC 9.3 RBC 2.95 L Hgb 9.3 L Hct 26.4 L MCV 89.3 MCH 31.7 MCHC 35.5 RDW 15.1 Plt Count 120 L MPV 9.6 Neutrophils % 75.8 Lymphocytes % 13.4 Monocytes % 6.4 Eosinophils % 4.2 D Basophils % 0.2 Sodium 147 H Potassium 3.0 L Chloride 112 H Carbon Dioxide 29 Anion Gap 6 L BUN 8 D Creatinine 0.5 L Creat Clearance w eGFR > 60 Random Glucose 97 Calcium 6.7 L* Phosphorus 2.6 D Cancelled Magnesium 1.8 Cancelled Total Bilirubin 1.6 H D AST 31 D ALT 31 D Alkaline Phosphatase 53 D Total Protein 4.3 L Albumin 2.2 L Blood Type Antibody Screen Crossmatch Problem List - Problems (1) Dementia Code(s): F03.90 - UNSPECIFIED DEMENTIA WITHOUT BEHAVIORAL DISTURBANCE (2) GI bleed Code(s): K92.2 - GASTROINTESTINAL HEMORRHAGE, UNSPECIFIED Qualifiers: GI bleed type/associated pathology: unspecified gastrointestinal hemorrhage type Qualified Code(s): K92.2 - Gastrointestinal hemorrhage, unspecified (3) Chest pain Code(s): R07.9 - CHEST PAIN, UNSPECIFIED (4) Hypoxia Code(s): R09.02 - HYPOXEMIA (5) Transaminitis: (?) due to shock liver (6) S/P hemostasis of a large, flat, actively bleeding ulcer in the duodenal bulb. Assessment/Plan Normal transfusion thresholds ABX per ID IVF Strict I&O O2 as needed to maintain saturation Follow CBC PPI BID Advance to Full liquids per GI Floor Dr Powell Critical care time spent in reviewing chart, evaluating patient and formulating plan - 36 minutes.
[2018-01-07] MEDS: PANTOPRAZOLE 40 MG TABLET (FP) PO SCH ×2 (12:02→21:11)
--- NOTE | 2018-01-07 12:09 | PN ---
Progress Note, Physician History of Present Illness: No events. No stigmata of ongoing GI bleeding. Asymptomatic. - Current Medication List Current Medications: Active Medications Acetaminophen (Ofirmev Injection -) 1,000 mg IVPB Q6H PRN PRN Reason: FEVER Al Hydroxide/Mg Hydroxide (Mylanta Oral Suspension -) 30 ml PO Q6HPO [facility] Last Admin: 01/07/18 12:01 Dose: Not Given Chlorhexidine Gluconate (Hibiclens For Decolonization -) 1 applic TP HS SHANNA Dextrose/Sodium Chloride (D5-1/2ns+40 Meq Kcl -) 40 meq in 1,000 mls @ 50 mls/ hr IV ASDIR [facility] Last Admin: 01/07/18 12:01 Dose: 50 mls/hr Mupirocin (Bactroban Ointment (For Decolonization) -) 1 applic NS BID [facility] Stop: 01/09/18 21:59 Pantoprazole Sodium (Protonix -) 40 mg PO BID [facility] Last Admin: 01/07/18 12:02 Dose: Not Given Potassium Chloride (K-Dur -) 20 meq PO ONCE ONE Stop: 01/07/18 13:01 Sucralfate (Carafate Oral Suspension -) 1 gm PO ACHS [facility] - Objective Vital Signs: Vital Signs Temperature 98.6 F 01/07/18 06:00 Pulse Rate 62 01/07/18 10:00 Respiratory Rate 20 01/07/18 10:41 Blood Pressure 114/64 01/07/18 10:00 O2 Sat by Pulse Oximetry (%) 94 L 01/07/18 10:41 Constitutional: Yes: No Distress, Calm. No: Pallor Eyes: Yes: Conjunctiva Clear HENT: Yes: Atraumatic Neck: Yes: Supple Cardiovascular: No: Bradycardia, Tachycardia Respiratory: Yes: Regular Gastrointestinal: Yes: Soft. No: Distention, Melena, Rectal Bleeding, Tenderness, Vomiting Neurological: Yes: Alert Labs: CBC, BMP 01/07/18 05:20 01/07/18 05:20 INR, PTT INR 1.27 (0.82-1.09) H 01/06/18 05:30 Laboratory Last Values WBC 9.3 K/mm3 (4.0-10.0) 01/07/18 05:20 Corrected WBC (auto) Cancelled 01/04/18 08:30 RBC 2.95 M/mm3 (4.00-5.60) L 01/07/18 05:20 Hgb 9.3 GM/dL (11.7-16.9) L 01/07/18 05:20 Hct 26.4 % (35.4-49) L 01/07/18 05:20 MCV 89.3 fl (80-96) 01/07/18 05:20 MCH 31.7 pg (25.7-33.7) 01/07/18 05:20 MCHC 35.5 g/dl (32.0-35.9) 01/07/18 05:20 RDW 15.1 % (11.9-15.9) 01/07/18 05:20 Plt Count 120 K/MM3 (134-434) L 01/07/18 05:20 MPV 9.6 fl (7.5-11.1) 01/07/18 05:20 Total Counted 100 01/05/18 12:15 Neutrophils % 75.8 % (42.8-82.8) 01/07/18 05:20 Neutrophils % (Manual) 91.0 % (42.8-82.8) H* 01/05/18 12:15 Band Neutrophils % 1.0 % 01/05/18 12:15 Lymphocytes % 13.4 % (8-40) 01/07/18 05:20 Lymphocytes % (Manual) 4.0 % (8-40) L 01/05/18 12:15 Monocytes % 6.4 % (3.8-10.2) 01/07/18 05:20 Monocytes % (Manual) 3 % (3.8-10.2) L 01/05/18 12:15 Eosinophils % 4.2 % (0-4.5) D 01/07/18 05:20 Basophils % 0.2 % (0-2.0) 01/07/18 05:20 Nucleated RBC % Cancelled 01/04/18 08:30 Platelet Estimate Slt decrease 01/05/18 12:15 Platelet Comment Cancelled 01/04/18 08:30 PT with INR 14.40 SEC (9.98-11.88) H 01/06/18 05:30 INR 1.27 (0.82-1.09) H 01/06/18 05:30 PTT (Actin FS) 26.6 SECONDS (26.9-34.4) L 01/05/18 05:30 VBG pH 7.32 (7.32-7.42) 01/04/18 08:30 POC VBG pCO2 44.3 mmHg (38-52) 01/04/18 08:30 POC VBG pO2 49.8 mmHg (28-48) H 01/04/18 08:30 Mixed VBG HCO3 22.2 meq/L (19-25) 01/04/18 08:30 Sodium 147 mmol/L (136-145) H 01/07/18 05:20 Potassium 3.0 mmol/L (3.5-5.1) L 01/07/18 05:20 Chloride 112 mmol/L (98-107) H 01/07/18 05:20 Carbon Dioxide 29 mmol/L (21-32) 01/07/18 05:20 Anion Gap 6 (8-16) L 01/07/18 05:20 BUN 8 mg/dL (7-18) D 01/07/18 05:20 Creatinine 0.5 mg/dL (0.7-1.3) L 01/07/18 05:20 Creat Clearance w eGFR > 60 (>60) 01/07/18 05:20 Random Glucose 97 mg/dL (74-106) 01/07/18 05:20 Lactic Acid 1.4 mmol/L (0.0-2.0) 01/06/18 05:30 Calcium 6.7 mg/dL (8.5-10.1) L* 01/07/18 05:20 Phosphorus 2.6 mg/dL (2.5-4.9) D 01/07/18 05:20 Magnesium 1.8 mg/dL (1.8-2.4) 01/07/18 05:20 Iron 166 ug/dL (38-169) 01/05/18 05:30 TIBC < 183 ug/dL (250-450) L 01/05/18 05:30 Iron Saturation > 91 % (15-55) H 01/05/18 05:30 Ferritin 289.980 ng/ml (16.4-293.9) 01/05/18 05:30 Total Bilirubin 1.6 mg/dL (0.2-1.0) H D 01/07/18 05:20 AST 31 U/L (15-37) D 01/07/18 05:20 ALT 31 U/L (12-78) D 01/07/18 05:20 Alkaline Phosphatase 53 U/L (45-117) D 01/07/18 05:20 Total Protein 4.3 g/dl (6.4-8.2) L 01/07/18 05:20 Albumin 2.2 g/dl (3.4-5.0) L 01/07/18 05:20 Urine Color Yellow 01/05/18 01:30 Urine Appearance Clear 01/05/18 01:30 Urine pH 5.0 (5.0-8.0) 01/05/18 01:30 Ur Specific [place] 1.026 (1.001-1.035) 01/05/18 01:30 Urine Protein Negative (NEGATIVE) 01/05/18 01:30 Urine Glucose (UA) Negative (NEGATIVE) 01/05/18 01:30 Urine Ketones Negative (NEGATIVE) 01/05/18 01:30 Urine Blood 2+ (NEGATIVE) H 01/05/18 01:30 Urine Nitrite Negative (NEGATIVE) 01/05/18 01:30 Urine Bilirubin Negative (<2.0 mg/dL) 01/05/18 01:30 Urine Urobilinogen Negative mg/dL (0.2-1.0) 01/05/18 01:30 Ur Leukocyte Esterase Negative (NEGATIVE) 01/05/18 01:30 Urine WBC (Auto) 2 /hpf (3-5) 01/05/18 01:30 Urine RBC (Auto) 27 /hpf (0-3) 01/05/18 01:30 Ur Epithelial Cells Rare /HPF (FEW) 01/04/18 09:00 Urine Bacteria Rare /hpf (NONE SEEN) 01/05/18 01:30 Hyaline Casts 1 /lpf 01/05/18 01:30 Urine Mucus Rare 01/05/18 01:30 Ur Random Sodium 21 MMOL/L 01/05/18 01:30 Ur Random Potassium 69.6 MMOL/L 01/05/18 01:30 Ur Random Chloride 53 MMOL/L 01/05/18 01:30 Urine Creatinine 118.0 mg/dL (20-370) 01/05/18 01:30 Stool Occult Blood Positive (NEGATIVE) 01/04/18 07:54 Blood Type A POSITIVE 01/04/18 10:43 Antibody Screen Negative 01/04/18 08:30 Crossmatch See Detail 01/04/18 10:43 Problem List - Problems (1) Duodenal ulcer hemorrhage Code(s): K26.4 - CHRONIC OR UNSPECIFIED DUODENAL ULCER WITH HEMORRHAGE Assessment/Plan advance diet as tolerated PPI po bid continue carafate daily Hgb and monitor stools for melena.
--- NOTE | 2018-01-07 13:01 | PN ---
Physical Exam: SUBJECTIVE: Patient seen and examined No acute events overnight. Pt denies headache, chest pain, SOB, n/v/d/c, abdominal pain, melena, and hematochezia. OBJECTIVE: Vital Signs Period Temp Pulse Resp BP Sys/Henning Pulse Ox Last 24 Hr 98.5 F-99.9 F 55-76 14-20 104-128/34-74 94-94 GENERAL: elderly male, lying in bed, in NAD HEENT: NC, AT LUNGS: CTAB HEART: Regular rate and rhythm, S1, S2 without murmur, rub or gallop. ABDOMEN: ND, hypoactive BS, soft, NT, pugh in place EXTREMITIES: 2+ pulses, warm, well-perfused, no edema. NEUROLOGICAL: Cranial nerves II through XII grossly intact. Normal speech, gait not observed. Laboratory Results - last 24 hr 01/04/18 01/04/18 01/06/18 08:30 10:43 19:00 WBC 9.8 RBC 2.85 L D Hgb 9.1 L D Hct 25.9 L D MCV 91.0 MCH 31.7 MCHC 34.9 RDW 15.1 Plt Count 118 L MPV 9.5 Neutrophils % Lymphocytes % Monocytes % Eosinophils % Basophils % Sodium Potassium Chloride Carbon Dioxide Anion Gap BUN Creatinine Creat Clearance w eGFR Random Glucose Calcium Phosphorus Magnesium Total Bilirubin AST ALT Alkaline Phosphatase Total Protein Albumin Blood Type A POSITIVE A POSITIVE Antibody Screen Negative Crossmatch See Detail See Detail 01/07/18 01/07/18 01/07/18 05:20 05:20 05:20 WBC 9.3 RBC 2.95 L Hgb 9.3 L Hct 26.4 L MCV 89.3 MCH 31.7 MCHC 35.5 RDW 15.1 Plt Count 120 L MPV 9.6 Neutrophils % 75.8 Lymphocytes % 13.4 Monocytes % 6.4 Eosinophils % 4.2 D Basophils % 0.2 Sodium 147 H Potassium 3.0 L Chloride 112 H Carbon Dioxide 29 Anion Gap 6 L BUN 8 D Creatinine 0.5 L Creat Clearance w eGFR > 60 Random Glucose 97 Calcium 6.7 L* Phosphorus 2.6 D Cancelled Magnesium 1.8 Cancelled Total Bilirubin 1.6 H D AST 31 D ALT 31 D Alkaline Phosphatase 53 D Total Protein 4.3 L Albumin 2.2 L Blood Type Antibody Screen Crossmatch Active Medications Generic Name Dose Route Start Last Admin Trade Name Freq PRN Reason Stop Dose Admin Acetaminophen 1,000 mg 01/07/18 11:40 Ofirmev Injection - IVPB Q6H PRN FEVER Al Hydroxide/Mg Hydroxide 30 ml 01/07/18 12:00 01/07/18 12:01 Mylanta Oral Suspension - PO Not Given Q6HPO SHANNA Chlorhexidine Gluconate 1 applic 01/07/18 22:00 Hibiclens For Decolonization - TP HS SHANNA Dextrose/Sodium Chloride 40 meq in 1,000 mls @ 50 mls/hr 01/07/18 11:40 01/07 12:01 D5-1/2ns+40 Meq Kcl - IV 50 mls/hr ASDIR SHANNA Administration Mupirocin 1 applic 01/07/18 22:00 Bactroban Ointment (For Decolonization) - NS 01/09/18 21:59 BID SHANNA Pantoprazole Sodium 40 mg 01/07/18 11:45 01/07/18 12:02 Protonix - PO Not Given BID SHANNA Potassium Chloride 20 meq 01/07/18 13:00 K-Dur - PO 01/07/18 13:01 ONCE ONE Sucralfate 1 gm 01/07/18 16:30 Carafate Oral Suspension - PO ACHS [facility] ASSESSMENT/PLAN: 72M w/ hx of dementia, HTN, HLD, depression, constipation, and anxiety who presented with BRBPR and hypotension, found to have bleeding duodenal ulcer, s/ p EGD on 01/04. CV -MAPs between 59-85 overnight, continue to monitor Resp -satting 95% on NC 3L -continue to monitor -f/u CXR GI #BRBPR- s/p EGD on 01/04, without melena or hematochezia overnight -Hgb stable at 9.3 -tolerating clear liquid diet. advanced to full liquids -per GI, protonix gtt changed to po protonix 40mg BID -continue sucralfate and mylanta -pain control with APAP -continue D5-1/2 NS @ 50 Nephro -creatinine of 0.5 -remove pugh per nephro ID -afebrile, no leukocytosis -Ucx: negative -Bcx: negative x 48hrs FEN/ppx -D5-1/2 NS @ 50 -replete K and calcium -advanced to full liquids -no DVT ppx 2/2 GI bleed -protonix Dispo -stable for transfer to floors. -DNR/DNI Case discussed with attending, Dr. Powell. -Paul Draper MD PGY1 ICU Team Visit type - Emergency Visit Emergency Visit: Yes ED Registration Date: 01/04/18 Care time: The patient presented to the Emergency Department on the above date and was hospitalized for further evaluation of their emergent condition. - New Patient This patient is new to me today: Yes Date on this admission: 01/07/18 - Critical Care Critical Care patient: Yes Total Critical Care Time (in minutes): 36 Critical Care Statement: The care of this patient involved high complexity decision making to prevent further life threatening deterioration of the patient 's condition and/or to evaluate & treat vital organ system(s) failure or risk of failure.
[2018-01-07] MEDS ORDERED: ACETAMINOPHEN 1000 MG/100 ML VIAL (NON FORMULARY) IVPB PRN (13:03)
--- NOTE | 2018-01-07 14:18 | EKG ---
Test Reason : Blood Pressure : / mmHG Vent. Rate : 109 BPM Atrial Rate : 109 BPM P-R Int : 144 ms QRS Dur : 100 ms QT Int : 350 ms P-R-T Axes : 017 029 024 degrees QTc Int : 471 ms BASELINE ARTIFACT SINUS TACHYCARDIA NONSPECIFIC ST ABNORMALITY ABNORMAL ECG WHEN COMPARED WITH ECG OF 13-APR-2015 10:17, QRS DURATION HAS DECREASED Confirmed by CHRISTEN WOODS MD ([id number]) on 01/07/2018 2:18:25 PM Referred By: Confirmed By:CHRISTEN WOODS MD
--- NOTE | 2018-01-07 16:28 | PN ---
Progress Note, Physician History of Present Illness: Pt seen and examined at bedside. He is awake and appears comfortable. - Current Medication List Current Medications: Active Medications Acetaminophen (Ofirmev Injection -) 1,000 mg IVPB Q6H PRN PRN Reason: FEVER Al Hydroxide/Mg Hydroxide (Mylanta Oral Suspension -) 30 ml PO Q6HPO [facility] Last Admin: 01/07/18 12:01 Dose: Not Given Chlorhexidine Gluconate (Hibiclens For Decolonization -) 1 applic TP HS SHANNA Dextrose/Sodium Chloride (D5-1/2ns+40 Meq Kcl -) 40 meq in 1,000 mls @ 50 mls/ hr IV ASDIR [facility] Last Admin: 01/07/18 12:01 Dose: 50 mls/hr Mupirocin (Bactroban Ointment (For Decolonization) -) 1 applic NS BID [facility] Stop: 01/09/18 21:59 Pantoprazole Sodium (Protonix -) 40 mg PO BID [facility] Last Admin: 01/07/18 12:02 Dose: Not Given Sucralfate (Carafate Oral Suspension -) 1 gm PO ACHS [facility] - Objective Vital Signs: Vital Signs Temperature 98.6 F 01/07/18 06:00 Pulse Rate 63 01/07/18 14:00 Respiratory Rate 20 01/07/18 14:00 Blood Pressure 140/68 01/07/18 14:00 O2 Sat by Pulse Oximetry (%) 94 L 01/07/18 10:41 Constitutional: Yes: Calm Eyes: Yes: Conjunctiva Clear HENT: Yes: Atraumatic Neck: Yes: Supple Cardiovascular: Yes: S1, S2 Respiratory: Yes: CTA Bilaterally Gastrointestinal: Yes: Soft Genitourinary: Yes: Camacho Present Musculoskeletal: Yes: WNL Edema: No Neurological: Yes: Pre-Existing Deficit Labs: CBC, BMP 01/07/18 05:20 01/07/18 05:20 INR, PTT INR 1.27 (0.82-1.09) H 01/06/18 05:30 - ....Imaging Chest X-ray: Report Reviewed Problem List - Problems (1) Lactic acidosis Code(s): E87.2 - ACIDOSIS (2) SONAM (acute kidney injury) Code(s): N17.9 - ACUTE KIDNEY FAILURE, UNSPECIFIED (3) Dementia Code(s): F03.90 - UNSPECIFIED DEMENTIA WITHOUT BEHAVIORAL DISTURBANCE Qualifiers: Dementia type: unspecified type Dementia behavioral disturbance: without behavioral disturbance Qualified Code(s): F03.90 - Unspecified dementia without behavioral disturbance (4) GI bleed Code(s): K92.2 - GASTROINTESTINAL HEMORRHAGE, UNSPECIFIED Qualifiers: GI bleed type/associated pathology: unspecified gastrointestinal hemorrhage type Qualified Code(s): K92.2 - Gastrointestinal hemorrhage, unspecified Assessment/Plan Current Medications Generic Name Dose Route Start Last Admin Trade Name Freq PRN Reason Stop Dose Admin Acetaminophen 1,000 mg 01/07/18 13:03 Ofirmev Injection - IVPB Q6H PRN FEVER Al Hydroxide/Mg Hydroxide 30 ml 01/07/18 12:00 01/07/18 12:01 Mylanta Oral Suspension - PO Not Given Q6HPO [facility] Chlorhexidine Gluconate 1 applic 01/07/18 22:00 Hibiclens For Decolonization - TP HS SHANNA Dextrose/Sodium Chloride 40 meq in 1,000 mls @ 50 mls/hr 01/07/18 11:40 01/07 12:01 D5-1/2ns+40 Meq Kcl - IV 50 mls/hr ASDIR [facility] Administration Mupirocin 1 applic 01/07/18 22:00 Bactroban Ointment (For Decolonization) - NS 01/09/18 21:59 BID SHANNA Pantoprazole Sodium 40 mg 01/07/18 11:45 01/07/18 12:02 Protonix - PO Not Given BID SHANNA Sucralfate 1 gm 01/07/18 16:30 Carafate Oral Suspension - PO ACHS [facility] Impression 1. SONAM 2. lactic acidosis 3. GI bleed 4. hypotension 5. dementia 6. hypernatremia 7. anemia Plan - renal function is improving - replace potassium - check mag - sodium is improving - monitor hg - likely sonam from pre-renal disease - agree with hypotonic fluids - monitor sodium level Dr Lawrence
[2018-01-07] MEDS: CHLORHEXIDINE GLUCONATE 4% CLEANSER FOR DECOLONIZATION TP SCH (21:11)
[2018-01-08] MEDS: MAG HYDROX/AL HYDROX/SIMETH 30 ML UNIT-DOSE CUP PO SCH ×4 (06:01→23:45)
[2018-01-08] MEDS: SUCRALFATE 1 GM/10 ML UNIT DOSE CUPS PO SCH ×4 (06:01→21:14)
[2018-01-08 07:08] LABS: BASO % 0.2 % (0-2.0); EOS % 4.5 % (0-4.5); HEMATOCRIT 28.5 % (35.4-49); LYMPH % 13.6 % (8-40); MCH 31.5 pg (25.7-33.7); MCHC 35.2 g/dl (32.0-35.9); MEAN CELL VOLUME 89.5 fl (80-96); MEAN PLT VOLUME 9.4 fl (7.5-11.1); MONO % 6.7 % (3.8-10.2); PLATELET COUNT 135 K/MM3 (134-434); RBC 3.18 M/mm3 (4.00-5.60); RDW 15.1 % (11.9-15.9); WHITE BLOOD COUNT 7.9 K/mm3 (4.0-10.0)
[2018-01-08 07:17] LABS: CHLORIDE 109 mmol/L (98-107); POTASSIUM 3.7 mmol/L (3.5-5.1); SODIUM 143 mmol/L (136-145)
[2018-01-08 07:23] LABS: ALBUMIN 2.2 g/dl (3.4-5.0); ALK PHOS 58 U/L (45-117); ANION GAP 4 (8-16); BILIRUBIN,TOTAL 1.4 mg/dL (0.2-1.0); BLOOD UREA NITROGEN 4 mg/dL (7-18); CO2 30 mmol/L (21-32); CREATININE 0.5 mg/dL (0.7-1.3); GLUCOSE,RANDOM 99 mg/dL (74-106); MAGNESIUM 1.8 mg/dL (1.8-2.4); PHOSPHOROUS 2.1 mg/dL (2.5-4.9); SGOT/AST 20 U/L (15-37); SGPT/ALT 24 U/L (12-78); TOT PROT 4.5 g/dl (6.4-8.2)
[2018-01-08 08:21] LABS: CALCIUM 6.8 mg/dL (8.5-10.1)
[2018-01-08] MEDS: PANTOPRAZOLE 40 MG TABLET (FP) PO SCH ×2 (09:25→21:14)
[2018-01-08] MEDS: MUPIROCIN 2% TOPICAL OINTMENT FOR DECOLONIZATION NS SCH ×2 (09:25→21:13)
[2018-01-08] MEDS: D5-1/2NS+40 MEQ KCL - 40 MEQ/1,000 ML INFUS.BAG IV SCH (11:03)
--- NOTE | 2018-01-08 12:41 | PN ---
Progress Note, Physician Chief Complaint: s/p GIB, h/h stable diet advanced today PT eval pending transfer to med/surg - Current Medication List Current Medications: Active Medications Acetaminophen (Ofirmev Injection -) 1,000 mg IVPB Q6H PRN PRN Reason: FEVER Al Hydroxide/Mg Hydroxide (Mylanta Oral Suspension -) 30 ml PO Q6HPO [facility] Last Admin: 01/08/18 11:02 Dose: 30 ml Chlorhexidine Gluconate (Hibiclens For Decolonization -) 1 applic TP HS [facility] Last Admin: 01/07/18 21:11 Dose: 1 applic Dextrose/Sodium Chloride (D5-1/2ns+40 Meq Kcl -) 40 meq in 1,000 mls @ 50 mls/ hr IV ASDIR [facility] Last Admin: 01/08/18 11:03 Dose: 50 mls/hr Mupirocin (Bactroban Ointment (For Decolonization) -) 1 applic NS BID [facility] Stop: 01/09/18 21:59 Last Admin: 01/08/18 09:25 Dose: Not Given Pantoprazole Sodium (Protonix -) 40 mg PO BID [facility] Last Admin: 01/08/18 09:25 Dose: 40 mg Sucralfate (Carafate Oral Suspension -) 1 gm PO ACHS [facility] Last Admin: 01/08/18 11:02 Dose: 1 gm - Objective Vital Signs: Vital Signs Temperature 98.3 F 01/08/18 09:30 Pulse Rate 64 01/08/18 09:30 Respiratory Rate 20 01/08/18 09:30 Blood Pressure 126/59 01/08/18 09:30 O2 Sat by Pulse Oximetry (%) 95 01/08/18 09:00 Constitutional: Yes: Calm Neck: Yes: Trachea Midline Cardiovascular: Yes: Regular Rate and Rhythm, S1, S2 Respiratory: Yes: CTA Bilaterally Gastrointestinal: Yes: Normal Bowel Sounds, Soft Neurological: Yes: Alert Labs: CBC, BMP 01/08/18 05:35 01/08/18 05:35 INR, PTT INR 1.27 (0.82-1.09) H 01/06/18 05:30 Problem List - Problems (1) Duodenal ulcer hemorrhage Assessment/Plan: sucralfate,PPI h/h stable advance diet Code(s): K26.4 - CHRONIC OR UNSPECIFIED DUODENAL ULCER WITH HEMORRHAGE (2) Hypernatremia Assessment/Plan: improved Code(s): E87.0 - HYPEROSMOLALITY AND HYPERNATREMIA Assessment/Plan PT eval pending advance diet OOB to chair dc to kris in AM
[2018-01-08] MEDS ORDERED: CALCIUM 500MG/VIT-D 200 UNITS COMBO TABLET (FP) PO SCH (12:45)
--- NOTE | 2018-01-08 12:47 | DS ---
Physical Examination Vital Signs: Vital Signs Temperature 98.3 F 01/08/18 09:30 Pulse Rate 64 01/08/18 09:30 Respiratory Rate 20 01/08/18 09:30 Blood Pressure 126/59 01/08/18 09:30 O2 Sat by Pulse Oximetry (%) 95 01/08/18 09:00 Constitutional: Yes: Calm Neck: Yes: Trachea Midline Cardiovascular: Yes: Regular Rate and Rhythm, S1, S2 Respiratory: Yes: CTA Bilaterally Gastrointestinal: Yes: Normal Bowel Sounds, Soft Labs: CBC, BMP 01/08/18 05:35 01/08/18 05:35 Discharge Summary Reason For Visit: GI BLEED Current Active Problems SONAM (acute kidney injury) (Acute) Dementia (Acute) Duodenal ulcer hemorrhage (Acute) Fever (Acute) GI bleed (Acute) Hypernatremia (Acute) Lactic acidosis (Acute) Leukocytosis (Acute) Hospital Course: PCP: Duong Sellers - Admission Chief Complaint: GI BLEED ACUTE ANEMIA History of Present Illness: 72yo M resident from [facility] with h/o severe dementia with psychosis (capable of being verbal, but rarely speaks; listens to commands), hypertension, hyperlipidemia, depression, constipation and anxiety who presents to the emergency department via EMS for abdominal pain and blood in stool at the [facility]. Pt's HPI is severely limited due to his dementia and history is taken from [facility] paperwork and EMS team. Pt's BP en route to ED was 60/40 's and repeat here was 85/55 per automated cuff. History Source: Medical Record Limitations to Obtaining History: Dementia - Past Medical History [employer]: Yes: Dementia Cardiovascular: Yes: HTN, Hyperlipdemia EGD duodenal ulcer bleeding ,cauterized PPI bid carafate h/h stable hypernatremia hypotonic fluids now improved Condition: Stable - Instructions Diet, Activity, Other Instructions: CBC and CMP in 3 days carafate PPI bid Referrals: Abhinav Giraldo [Non Staff, Medical] - - Home Medications Comprehensive Discharge Medication List: Ambulatory Orders Amlodipine Besylate [Norvasc -] 5 mg PO DAILY 01/04/18 Doxazosin Mesylate [Cardura -] 1 mg PO HS 01/04/18 Gabapentin [Neurontin] 100 mg PO HS 01/04/18 Polyethylene Glycol 3350 [Gavilax] 17 gm PO DAILY 01/04/18 Quetiapine Fumarate [Seroquel] 100 mg PO HS 01/04/18
[2018-01-08] MEDS ORDERED: CALCIUM GLUCONATE 10% - 1,000 MG/10 ML VIAL IVPB ONE (12:48)
[2018-01-08] MEDS: CALCIUM 500MG/VIT-D 200 UNITS COMBO TABLET (FP) PO SCH ×2 (13:27→21:14)
--- NOTE | 2018-01-08 13:48 | PN ---
Progress Note, Physician History of Present Illness: No events. No stigmata of ongoing GI bleeding. Asymptomatic. at bedside. Hemoglobin 10 g/dL this morning - Current Medication List Current Medications: Active Medications Acetaminophen (Ofirmev Injection -) 1,000 mg IVPB Q6H PRN PRN Reason: FEVER Al Hydroxide/Mg Hydroxide (Mylanta Oral Suspension -) 30 ml PO Q6HPO [facility] Last Admin: 01/08/18 11:02 Dose: 30 ml Calcium Carbonate/Cholecalciferol (Os-Waqar 500+D -) 1 tab PO BID [facility] Last Admin: 01/08/18 13:27 Dose: 1 tab Chlorhexidine Gluconate (Hibiclens For Decolonization -) 1 applic TP HS [facility] Last Admin: 01/07/18 21:11 Dose: 1 applic Dextrose/Sodium Chloride (D5-1/2ns+40 Meq Kcl -) 40 meq in 1,000 mls @ 50 mls/ hr IV ASDIR [facility] Last Admin: 01/08/18 11:03 Dose: 50 mls/hr Mupirocin (Bactroban Ointment (For Decolonization) -) 1 applic NS BID [facility] Stop: 01/09/18 21:59 Last Admin: 01/08/18 09:25 Dose: Not Given Pantoprazole Sodium (Protonix -) 40 mg PO BID [facility] Last Admin: 01/08/18 09:25 Dose: 40 mg Sucralfate (Carafate Oral Suspension -) 1 gm PO ACHS [facility] Last Admin: 01/08/18 11:02 Dose: 1 gm - Objective Vital Signs: Vital Signs Temperature 98.3 F 01/08/18 09:30 Pulse Rate 64 01/08/18 09:30 Respiratory Rate 20 01/08/18 09:30 Blood Pressure 126/59 01/08/18 09:30 O2 Sat by Pulse Oximetry (%) 95 01/08/18 09:00 Gastrointestinal: Yes: Normal Bowel Sounds, Soft. No: Rectal Bleeding, Tenderness, Vomiting Labs: CBC, BMP 01/08/18 05:35 01/08/18 05:35 INR, PTT INR 1.27 (0.82-1.09) H 01/06/18 05:30 Problem List - Problems (1) Duodenal ulcer hemorrhage Code(s): K26.4 - CHRONIC OR UNSPECIFIED DUODENAL ULCER WITH HEMORRHAGE Assessment/Plan Diet as tolerated. Avoid NSAIDs. Follow biopsy results. PPI po bid continue carafate for 2 weeks total.
[2018-01-08] MEDS ORDERED: D5-1/2NS+40 MEQ KCL - 40 MEQ/1,000 ML INFUS.BAG IV SCH (15:05)
--- NOTE | 2018-01-08 15:05 | PN ---
Progress Note, Physician History of Present Illness: Pt seen and examined at bedside. He is awake and alert. He appears comfortable. Family are at bedside and care was discussed with them. - Current Medication List Current Medications: Active Medications Acetaminophen (Ofirmev Injection -) 1,000 mg IVPB Q6H PRN PRN Reason: FEVER Al Hydroxide/Mg Hydroxide (Mylanta Oral Suspension -) 30 ml PO Q6HPO [facility] Last Admin: 01/08/18 11:02 Dose: 30 ml Calcium Carbonate/Cholecalciferol (Os-Waqar 500+D -) 1 tab PO BID [facility] Last Admin: 01/08/18 13:27 Dose: 1 tab Chlorhexidine Gluconate (Hibiclens For Decolonization -) 1 applic TP HS [facility] Last Admin: 01/07/18 21:11 Dose: 1 applic Dextrose/Sodium Chloride (D5-1/2ns+40 Meq Kcl -) 40 meq in 1,000 mls @ 50 mls/ hr IV ASDIR [facility] Last Admin: 01/08/18 11:03 Dose: 50 mls/hr Mupirocin (Bactroban Ointment (For Decolonization) -) 1 applic NS BID [facility] Stop: 01/09/18 21:59 Last Admin: 01/08/18 09:25 Dose: Not Given Pantoprazole Sodium (Protonix -) 40 mg PO BID [facility] Last Admin: 01/08/18 09:25 Dose: 40 mg Sucralfate (Carafate Oral Suspension -) 1 gm PO ACHS [facility] Last Admin: 01/08/18 11:02 Dose: 1 gm - Objective Vital Signs: Vital Signs Temperature 98.3 F 01/08/18 09:30 Pulse Rate 64 01/08/18 09:30 Respiratory Rate 20 01/08/18 09:30 Blood Pressure 126/59 01/08/18 09:30 O2 Sat by Pulse Oximetry (%) 95 01/08/18 09:00 Constitutional: Yes: Calm Eyes: Yes: Conjunctiva Clear HENT: Yes: Atraumatic Neck: Yes: Supple Cardiovascular: Yes: S1, S2 Respiratory: Yes: CTA Bilaterally Gastrointestinal: Yes: Soft Genitourinary: Yes: Incontinence Musculoskeletal: Yes: WNL Edema: No Neurological: Yes: Oriented Psychiatric: Yes: Oriented Labs: CBC, BMP 01/08/18 05:35 01/08/18 05:35 INR, PTT INR 1.27 (0.82-1.09) H 01/06/18 05:30 Problem List - Problems (1) Lactic acidosis Code(s): E87.2 - ACIDOSIS (2) SONAM (acute kidney injury) Code(s): N17.9 - ACUTE KIDNEY FAILURE, UNSPECIFIED (3) Dementia Code(s): F03.90 - UNSPECIFIED DEMENTIA WITHOUT BEHAVIORAL DISTURBANCE Qualifiers: Dementia type: unspecified type Dementia behavioral disturbance: without behavioral disturbance Qualified Code(s): F03.90 - Unspecified dementia without behavioral disturbance (4) GI bleed Code(s): K92.2 - GASTROINTESTINAL HEMORRHAGE, UNSPECIFIED Qualifiers: GI bleed type/associated pathology: unspecified gastrointestinal hemorrhage type Qualified Code(s): K92.2 - Gastrointestinal hemorrhage, unspecified Assessment/Plan Current Medications Generic Name Dose Route Start Last Admin Trade Name Freq PRN Reason Stop Dose Admin Acetaminophen 1,000 mg 01/07/18 13:03 Ofirmev Injection - IVPB Q6H PRN FEVER Al Hydroxide/Mg Hydroxide 30 ml 01/07/18 12:00 01/08/18 11:02 Mylanta Oral Suspension - PO 30 ml Q6HPO SHANNA Administration Calcium Carbonate/Cholecalciferol 1 tab 01/08/18 13:15 01/08/18 13:27 Os-Waqar 500+D - PO 1 tab BID SHANNA Administration Chlorhexidine Gluconate 1 applic 01/07/18 22:00 01/07/18 21:11 Hibiclens For Decolonization - TP 1 applic HS SHANNA Administration Dextrose/Sodium Chloride 40 meq in 1,000 mls @ 50 mls/hr 01/07/18 11:40 01/08 11:03 D5-1/2ns+40 Meq Kcl - IV 50 mls/hr ASDIR SHANNA Administration Mupirocin 1 applic 01/07/18 22:00 01/08/18 09:25 Bactroban Ointment (For Decolonization) - NS 01/09/18 21:59 Not Given BID SHANNA Pantoprazole Sodium 40 mg 01/07/18 11:45 01/08/18 09:25 Protonix - PO 40 mg BID SHANNA Administration Sucralfate 1 gm 01/07/18 16:30 01/08/18 11:02 Carafate Oral Suspension - PO 1 gm ACHS SHANNA Administration Impression 1. SONAM 2. lactic acidosis 3. GI bleed 4. hypotension 5. dementia 6. hypernatremia 7. anemia Plan - sodium is improving - renal function is stable - GI input appreciated - likely sonam from pre-renal disease - agree with hypotonic fluids - will decrease rate of fluids Dr Lawrence
[2018-01-08] MEDS: CHLORHEXIDINE GLUCONATE 4% CLEANSER FOR DECOLONIZATION TP SCH (21:13)
[2018-01-09] MEDS: MAG HYDROX/AL HYDROX/SIMETH 30 ML UNIT-DOSE CUP PO SCH ×3 (06:22→16:59)
[2018-01-09] MEDS: SUCRALFATE 1 GM/10 ML UNIT DOSE CUPS PO SCH ×3 (06:22→16:57)
[2018-01-09] MEDS ORDERED: CALCIUM 500MG/VIT-D 200 UNITS COMBO TABLET (FP) PO SCH (09:00)
[2018-01-09] MEDS: CALCIUM 500MG/VIT-D 200 UNITS COMBO TABLET (FP) PO SCH (09:08)
[2018-01-09] MEDS: PANTOPRAZOLE 40 MG TABLET (FP) PO SCH (09:08)
[2018-01-09 09:48] VITALS: BP 105/62; PULSE 83; TEMP 98.3
--- NOTE | 2018-01-09 11:00 | DS ---
Physical Examination Vital Signs: Vital Signs Temperature 98.3 F 01/09/18 09:00 Pulse Rate 83 01/09/18 09:00 Respiratory Rate 18 01/09/18 09:00 Blood Pressure 105/62 01/09/18 09:00 O2 Sat by Pulse Oximetry (%) 97 01/09/18 09:00 Findings/Remarks: RIGHT ARM PAIN Constitutional: Yes: Mild Distress Eyes: Yes: WNL HENT: Yes: WNL Neck: Yes: WNL Cardiovascular: Yes: WNL Respiratory: Yes: WNL Gastrointestinal: Yes: WNL Renal/: Yes: WNL, Incontinence Musculoskeletal: Yes: WNL Extremities: Yes: WNL Edema: No Peripheral Pulses WNL: Yes Integumentary: Yes: WNL Wound/Incision: Yes: Clean/Dry Neurological: Yes: Pre-Existing Deficit ...Motor Strength: LLE, RLE Psychiatric: Yes: Other Labs: CBC, BMP 01/08/18 05:35 01/08/18 05:35 Discharge Summary Reason For Visit: GI BLEED Current Active Problems SONAM (acute kidney injury) (Acute) Dementia (Acute) Duodenal ulcer hemorrhage (Acute) Fever (Acute) GI bleed (Acute) Hypernatremia (Acute) Lactic acidosis (Acute) Leukocytosis (Acute) Procedures: Principal: CT SCANS Hospital Course: ADMITTED GI BLEED TRANSFUSED PRBC MONITOR AT MD Condition: Stable - Instructions Diet, Activity, Other Instructions: CBC and CMP in 3 days carafate PPI bid Referrals: Abhinav Giraldo [Non Staff, Medical] - Disposition: INTERMEDIATE FACILITY - Home Medications Comprehensive Discharge Medication List: Ambulatory Orders Amlodipine Besylate [Norvasc -] 5 mg PO DAILY 01/04/18 Doxazosin Mesylate [Cardura -] 1 mg PO HS 01/04/18 Gabapentin [Neurontin] 100 mg PO HS 01/04/18 Polyethylene Glycol 3350 [Gavilax] 17 gm PO DAILY 01/04/18 Quetiapine Fumarate [Seroquel] 100 mg PO HS 01/04/18
--- NOTE | 2018-01-09 12:45 | PN ---
Progress Note, Physician History of Present Illness: Pt seen and examined at bedside. He is awake and appears comfortable. - Current Medication List Current Medications: Active Medications Acetaminophen (Ofirmev Injection -) 1,000 mg IVPB Q6H PRN PRN Reason: FEVER Al Hydroxide/Mg Hydroxide (Mylanta Oral Suspension -) 30 ml PO Q6HPO [facility] Last Admin: 01/09/18 12:24 Dose: 30 ml Calcium Carbonate/Cholecalciferol (Os-Waqar 500+D -) 1 tab PO BID [facility] Last Admin: 01/09/18 09:08 Dose: 1 tab Dextrose/Sodium Chloride (D5-1/2ns+40 Meq Kcl -) 40 meq in 1,000 mls @ 30 mls/ hr IV ASDIR [facility] Last Admin: 01/08/18 17:02 Dose: 30 mls/hr Pantoprazole Sodium (Protonix -) 40 mg PO BID [facility] Last Admin: 01/09/18 09:08 Dose: 40 mg Sucralfate (Carafate Oral Suspension -) 1 gm PO ACHS [facility] Last Admin: 01/09/18 12:24 Dose: 1 gm - Objective Vital Signs: Vital Signs Temperature 98.3 F 01/09/18 09:00 Pulse Rate 83 01/09/18 09:00 Respiratory Rate 18 01/09/18 09:00 Blood Pressure 105/62 01/09/18 09:00 O2 Sat by Pulse Oximetry (%) 97 01/09/18 09:00 Constitutional: Yes: Calm Eyes: Yes: Conjunctiva Clear HENT: Yes: Atraumatic Cardiovascular: Yes: S1, S2 Respiratory: Yes: CTA Bilaterally Gastrointestinal: Yes: Soft Genitourinary: Yes: Incontinence Musculoskeletal: Yes: WNL Edema: No Neurological: Yes: Oriented Labs: CBC, BMP 01/08/18 05:35 01/08/18 05:35 INR, PTT INR 1.27 (0.82-1.09) H 01/06/18 05:30 Problem List - Problems (1) Lactic acidosis Code(s): E87.2 - ACIDOSIS (2) SONAM (acute kidney injury) Code(s): N17.9 - ACUTE KIDNEY FAILURE, UNSPECIFIED (3) Dementia Code(s): F03.90 - UNSPECIFIED DEMENTIA WITHOUT BEHAVIORAL DISTURBANCE Qualifiers: Dementia type: unspecified type Dementia behavioral disturbance: without behavioral disturbance Qualified Code(s): F03.90 - Unspecified dementia without behavioral disturbance (4) GI bleed Code(s): K92.2 - GASTROINTESTINAL HEMORRHAGE, UNSPECIFIED Qualifiers: GI bleed type/associated pathology: unspecified gastrointestinal hemorrhage type Qualified Code(s): K92.2 - Gastrointestinal hemorrhage, unspecified Assessment/Plan Current Medications Generic Name Dose Route Start Last Admin Trade Name Freq PRN Reason Stop Dose Admin Acetaminophen 1,000 mg 01/07/18 13:03 Ofirmev Injection - IVPB Q6H PRN FEVER Al Hydroxide/Mg Hydroxide 30 ml 01/07/18 12:00 01/09/18 12:24 Mylanta Oral Suspension - PO 30 ml Q6HPO SHANNA Administration Calcium Carbonate/Cholecalciferol 1 tab 01/08/18 13:15 01/09/18 09:08 Os-Waqar 500+D - PO 1 tab BID SHANNA Administration Dextrose/Sodium Chloride 40 meq in 1,000 mls @ 30 mls/hr 01/08/18 15:05 01/08 17:02 D5-1/2ns+40 Meq Kcl - IV 30 mls/hr ASDIR SHANNA Administration Pantoprazole Sodium 40 mg 01/07/18 11:45 01/09/18 09:08 Protonix - PO 40 mg BID SHANNA Administration Sucralfate 1 gm 01/07/18 16:30 01/09/18 12:24 Carafate Oral Suspension - PO 1 gm ACHS SHANNA Administration Impression 1. SONAM 2. lactic acidosis 3. GI bleed 4. hypotension 5. dementia 6. hypernatremia 7. anemia Plan - no new labs - pt tolerating diet - can stop fluids - pt may be going back to rehab today, check bmp there - would also recommend monitoring Hg - discussed with family at bedside Dr Lawrence
--- NOTE | 2018-01-09 15:01 | PN ---
Progress Note (short form) - Note Progress Note: Pt seen and examined. He is a 72 year old male who denies any recent h/o trauma to the right hand. He has no c/o pain. Xrays were done of the right wrist and they suggest an acute fracture to the right thumb. PE PE of the right thumb is completely normal. He has no tenderness to palpation. EPL, FPL function nl with no pain. NVI No signs of acute trauma, no bruising, no swelling, no pain with motion, no deformity. Xrays Suggest an acute fracture of the right thumb distal phalanx. Imp Although xrays do suggest a right thumb distal phalanx fracture, clinical exam refutes it. His PE of the right thumb is completely normal. Rec No treatment necessary. No splint. No limitations.
== END 2018-01-09 18:09 | DRG 378 ==
LOC: JER 07:11 → JERBED 12:54 → JICU 19:40 → J4S 01-07 22:59
PROVIDERS: ADMIT Family Medicine; ATTEND Family Medicine
PROC: 3E0G8GC Introduction of Other Therapeutic Substance into Upper GI, Via Natural or Artificial Opening Endoscopic (ICD-10-PCS; 2018-01-04)
PROC: 0W3P8ZZ Control Bleeding in Gastrointestinal Tract, Via Natural or Artificial Opening Endoscopic (ICD-10-PCS; 2018-01-04)
PROC: 30233N1 Transfusion of Nonautologous Red Blood Cells into Peripheral Vein, Percutaneous Approach (ICD-10-PCS; 2018-01-04)
PROC: 0DD68ZX Extraction of Stomach, Via Natural or Artificial Opening Endoscopic, Diagnostic (ICD-10-PCS; principal; 2018-01-04 14:00)
DX: K26.4 Chronic or unspecified duodenal ulcer with hemorrhage (principal); E87.0 Hyperosmolality and hypernatremia; E87.2 Acidosis; D62 Acute posthemorrhagic anemia; N17.9 Acute kidney failure, unspecified; N39.0 Urinary tract infection, site not specified; E78.5 Hyperlipidemia, unspecified; K59.00 Constipation, unspecified; F41.8 Other specified anxiety disorders; N40.0 Benign prostatic hyperplasia without lower urinary tract symptoms; F03.90 Unspecified dementia, unspecified severity, without behavioral disturbance, psychotic disturbance, mood disturbance, and anxiety; R09.02 Hypoxemia; R07.89 Other chest pain; I12.9 Hypertensive chronic kidney disease with stage 1 through stage 4 chronic kidney disease, or unspecified chronic kidney disease; N18.3 Chronic kidney disease, stage 3 (moderate); R50.9 Fever, unspecified; D72.829 Elevated white blood cell count, unspecified; E86.0 Dehydration; R74.0 Nonspecific elevation of levels of transaminase and lactic acid dehydrogenase [LDH]; I95.9 Hypotension, unspecified; Z87.891 Personal history of nicotine dependence; Z66 Do not resuscitate; Z86.73 Personal history of transient ischemic attack (TIA), and cerebral infarction without residual deficits; Z99.3 Dependence on wheelchair
CPT/HCPCS: 36415; 36430; 71045-TC-FY; 73110-TC-RT-FY; 76775-TC; 76856-TC; 80053; 81003; 81015; 82272; 82436; 82570; 82728; 82803; 83540; 83550; 83605; 83735; 84100; 84132; 84133; 84300; 85025; 85027; 85610; 85730; 86850; 86900; 86901; 86922; 87040; 87086; 88305-TC; 93005; 93010; 97161-GP; 99284-25; J0131; J7030; P9038; P9058